=== PATIENT | male | born 1945 | race Caucasian/White ===

== ENCOUNTER 2016-10-04 19:26 | Inpatient (IN) | payer MEDICARE, OTHER ==
--- NOTE | ~2016-10-04 | A ---
[facility] Nutrition Therapy DATE: 10/06/16 Patient: JALEN HERNANDEZ Physician: DEYANIRA Address: [facility] Room/Bed: [address] [place] [address], Zip: [place] [address] Admit Date: 10/05/16 Date of : 45 Height: 5 10 Weight: 227 103 NUTRITIONAL ASSESSMENT: REASON: NUTRITION RISK POINT- HOME TUBE FEEDS PATIENT ADMITTED FOR KIMBERLY, POSSIBLE PNA, ABDOMINAL DISTENTION PMH: CAD, CVA, GERD, IMMOBILITY SYNDROME, APHAGIA, HTN Anthropometrics: HT: 70", WT: 130KG, BMI: 32.6 Labs: 10/06/16- BUN: 42, ALL OTHER NUTRITION LABS WNL Meds: VANCOMYCIN, MIRALAX, NACL, ZOSYN, MILK OF MAG I/O & Bowel function: 5310/2302 LBM 10/06/16 Skin Integrity: INTACT Estimated Nutrition Needs: KCAL: 3615-3440 (20-25KCAL/KG) PRO: 83-103 (0.8-1.0GM/KG) WATER: 9240-3575 (1ML/KCAL) Assessment: PATIENT IS A 70 Y/O MALE ADMITTED FOR KIMBERLY, POSSIBLE PNA, AND ABDOMINAL DISTENTION. HE IS A RESIDENT OF [facility] AND HAS A PERMINENT PEG TUBE PLACED. PATIENT IS MOSTLY NON-VERBAL, MAY ANSWER YES/NO QUESTIONS, AND DOES NOT REALLY FOLLOW COMMANDS. HE HAS R-SIDE HEMIPARESIS AND IMMOBILITY SYNDROME. PATIENT WAS SLEEPING DRUING VISIT AND THERE WAS NO FAMILY AT BEDSIDE. PATIENT HAS TRACE EDEMA TO RLE, WHICH MAY CAUSE WEIGHT FLUCUTATIONS, AND NO SKIN BREAKDOWN NOTED ATT. PATIENT IS ON A NPO DIET AND RECEIVES JEVITY 1.5 @ 70CC/HR X 22 HRS, WHICH IS HIS HOME FORMULA AND RATE. THERE HAVE BEEN NO SIGNIFICANT WEIGHT CHANGES PER iconDial X LAST 6 MONTHS. Dx: ALTERED NUTRIENT NEEDS R/T CURRENT CONDITION, NPO STATUS AEB NEED FOR ENTERAL NUTRITION Intervention: NPO DIET, ENTERAL NUTRITION VIA PEG TUBE, MEDS/FLUIDS PER MD Monitoring, Evaluation and Goals: 1. PREVENT, CORRECT MICRO/MACRO NUTRIENT DEFICIENCIES 2. WEIGHT; MAINTAIN CURRENT WEIGHT 3. PROVIDE 100% ESTIMATED NUTRIENT NEEDS [facility] Nutrition Therapy DATE: 10/06/16 Patient: JALEN HERNANDEZ Physician: DEYANIRA Address: [facility] Room/Bed: [address] [place] [address], Zip: [place] [address] Admit Date: 10/05/16 Date of : [birth year] Height: 5 10 Weight: 227 103 MONTIOR: WEIGHTS, LABS, ELECTROLYTES, I/O'S Recommendations: 1. CONTINUE CURRENT ENTERAL NUTRITION ORDER OF JEVITY 1.5 @ 70ML/HR X 22 HRS TOLERATED, AND FREE WATER FLUSHES OF 250CC Q 6 HOURS. THIS FORMULA PROVIDES 2310 KCALS, 98GM PROTEIN, AND 1170ML FLUIDS. 2. CONSULT RD WITH ANY FURTHER NUTRITION QUESTIONS OR CONCERNS RD TO F/U PER PROTOCOL AND PRN R/T PATIENT MILDLY COMPROMISED Respectfully, AUGIE PEREZ, RD, LD Food and Nutritional Services [facility] cc: client file
--- NOTE | ~2016-10-04 | CR72 ---
[facility] A Service of [facility] RADIOLOGY TEXT RESULTS PATIENT: JALEN HERNANDEZ LOCATION: [facility] : 45 UNIT #: [id number] AGE: [address]: Benjamin Banks MD SEX: M ORDER DR: [id number] [facility] [address] [facility]. [place], [place] [address] [id number] I MR#: [id number] Acc #: [id number] NAME: JALEN HERNANDEZ : 1945 SEX: M STUDY DATE/TIME: 10/08/2016 5:23 UNIT: [facility] ROOM: [facility] STUDY DESCRIPTION: CR Chest Single View Portable Attending Physician: Benjamin Banks M.D. Ordering Physician: Benjamin Banks M.D. Primary Care Physician: Primary Care Physician No MEDICAL IMAGING REPORT This report is preliminary unless electronic signature is present EXAM AP portable chest 10/08/2016 05:23 HISTORY Cough, abdominal distension and fever. Symptoms began 10/05/2016. COMPARISON AP portable chest 10/05/2016 at 05:18. FINDINGS Low volume inspiration. Mild linear scarring in the lung bases unchanged from prior exams. No acute airspace disease is seen. Benign calcified granuloma in the right lower lobe. IMPRESSION 1. No acute chest findings. Chronic linear bibasilar atelectasis or scarring which appears similar to a more remote study from 04/08/2016. 2. Benign calcified granulomatous changes. 3. CABG changes. Dictated by... Reshma Bond M.D. THIS IS AN ELECTRONICALLY VERIFIED REPORT Reshma Bond M.D. at 10/09/2016 9:59 PM [facility]/clark TD: 10/08/2016 08:56 JOB #: [id number] MEDICAL IMAGING REPORT [facility] A Service [facility] RADIOLOGY TEXT RESULTS PATIENT: JALEN HERNANDEZ LOCATION: [facility] : 45 UNIT #: [id number] AGE: [address]: Benjamin Banks MD SEX: M ORDER DR: Page 1 of 1 COPY
--- NOTE | ~2016-10-04 | CR72 ---
[facility] A Service of [facility] & [facility] RADIOLOGY TEXT RESULTS PATIENT: JALEN HERNANDEZ LOCATION: C2A : 45 UNIT #: [id number] AGE: [address]: Benjamin Banks MD SEX: M ORDER DR: [id number] [facility] [address] [facility]. [place], [place] [address] [id number] I MR#: [id number] Acc #: [id number] NAME: JALEN HERNANDEZ : 1945 SEX: M STUDY DATE/TIME: 10/11/2016 5:52 UNIT: [facility] ROOM: [facility] STUDY DESCRIPTION: CR Chest Single View Portable Attending Physician: Benjamin Banks M.D. Ordering Physician: Jagjit Rogers M.D. Primary Care Physician: No Primary Care Physician MEDICAL IMAGING REPORT This report is preliminary unless electronic signature is present EXAM Portable chest HISTORY Cough, pneumonia, fever. COMPARISON 10/08/2016 FINDINGS AP portable view of the chest demonstrates continued low lung volumes with bibasilar atelectasis. Diffuse coarse parenchymal markings suggest background fibrosis. Probable granuloma right midlung. Stable cardiomediastinal silhouette in this patient post median sternotomy and apparent CABG. No sizeable effusions. No pneumothorax. Dictated by... Sierra Evangelista M.D. THIS IS AN ELECTRONICALLY VERIFIED REPORT Sierra Evangelista M.D. at 10/11/2016 5:29 PM HARINDER/ken TD: 10/11/2016 09:31 JOB #: [id number] MEDICAL IMAGING REPORT Page 1 of 1 COPY
--- NOTE | ~2016-10-04 | EKG ---
PATIENT: JALEN HERNANDEZ UNIT #: [id number] Ventricular Rate: 96 BPM Atrial Rate: 96 BPM P-R Interval: 162 ms QRS Duration: 86 ms Q-T Interval: 350 ms QTC Calculation(Bezet): 442 ms P [place]: 52 degrees Calculated R [place]: -8 degrees Calculated T [place]: 54 degrees Diagnosis Line: Sinus rhythm with Fusion complexes Diagnosis Line: Otherwise normal ECG Diagnosis Line: No previous ECGs available Diagnosis Line: Confirmed by UBALDO ROSA MD ([id number]) on Diagnosis Line: 10/05/2016 11:18:29 PM INTERPRETING MD: TIFFANY
--- NOTE | ~2016-10-04 | CR2 ---
[facility] A Service of [facility] RADIOLOGY TEXT RESULTS PATIENT: JALEN HERNANDEZ LOCATION: [facility] 205-01 : [birth year] UNIT #: [id number] AGE: [address]: Benjamin Banks MD SEX: M ORDER DR: [id number] [facility] [address] [facility]. [place], [place] [address] [id number] P MR#: [id number] Acc #: [id number] NAME: JALEN HERNANDEZ : 1945 SEX: M STUDY DATE/TIME: 10/04/2016 18:44 UNIT: [facility] ROOM: STUDY DESCRIPTION: CR Abdomen Acute Series Attending Physician: Emma Wong M.D. Ordering Physician: Emma Wong M.D. Primary Care Physician: No Primary Care Physician MEDICAL IMAGING REPORT This report is preliminary unless electronic signature is present EXAM Acute abdominal series. DATE OF EXAM 10/04/2016 HISTORY Abdomen pain started today. FINDINGS AP radiograph of the chest is presented with supine and upright radiographs of the abdomen and pelvis. Status post median sternotomy and CABG. Mild cardiac enlargement. Lung volumes low. Linear atelectasis or scarring bilateral lung bases. Central bronchovascular crowding. There is no compelling evidence of acute infectious or inflammatory disease in the lungs. No definite pleural effusion or pneumothorax and no suspicious nodule. Calcified granuloma in the right lower lung zone. Bony structures of the abdomen and pelvis show degenerative change in the lumbar spine and bilateral hips with mild dextroscoliosis of the lumbar spine. The bowel gas pattern is abnormal. There are mildly dilated air-filled loops of small bowel seen throughout the abdomen. Air and stool seen throughout the colon with a large volume of stool seen throughout the colon particularly in the rectum. The bowel gas pattern could be a reflection of some degree of fecal impaction, constipation, and associated mild generalized ileus. There is no free air. Dictated by... Librado Pineda M.D. THIS IS AN ELECTRONICALLY VERIFIED REPORT [facility] A Service of [facility] RADIOLOGY TEXT RESULTS PATIENT: JALEN HERNANDEZ LOCATION: [facility] 205-01 : [birth year] UNIT #: [id number] AGE: [address]: Benjamin Banks MD SEX: M ORDER DR: Librado Pineda M.D. at 10/09/2016 10:29 AM ZAN/chintan TD: 10/04/2016 19:21 JOB #: [id number] MEDICAL IMAGING REPORT Page 1 of 1 COPY
--- NOTE | ~2016-10-04 | EKG ---
PATIENT: JALEN HERNANDEZ UNIT #: [id number] Ventricular Rate: 81 BPM Atrial Rate: 81 BPM P-R Interval: 164 ms QRS Duration: 82 ms Q-T Interval: 388 ms QTC Calculation(Bezet): 450 ms P [place]: 51 degrees Calculated R [place]: -19 degrees Calculated T [place]: 42 degrees Diagnosis Line: Normal sinus rhythm Diagnosis Line: Nonspecific T wave abnormality Diagnosis Line: Abnormal ECG Diagnosis Line: When compared with ECG of 08-APR-2016 20:05, Diagnosis Line: No significant change was found Diagnosis Line: Confirmed by UBALDO ROSA MD ([id number]) on Diagnosis Line: 10/05/2016 11:11:47 PM INTERPRETING MD: TIFFANY
--- NOTE | ~2016-10-04 | DS ---
Unit #: [id number] #: [id number] Patient: JALEN HERNANDEZ [id number] [facility]. [place], [place] [address] [id number] I MR#: [id number] NAME: JALEN HERNANDEZ ROOM: 205 Age: 70 Sex: M Admission Date: 10/05/2016 : 1945 Discharge Date: 10/11/2016 Attending Physician: Benjamin Banks M.D. Primary Care Physician: Lynda Primary Care Physician DISCHARGE SUMMARY REPAIR CAMERAMAN Dr. Rogers ADMITTING DIAGNOSES 1. Acute kidney injury. 2. Abdominal distention. 3. Cough. DISCHARGE DIAGNOSES 1. Acute kidney injury. 2. Abdominal distention. 3. Cough. 4. Possible healthcare-associated pneumonia. HISTORY OF PRESENTING ILLNESS The patient is a 70-year-old man who is a jail resident with a past medical history of stroke, chronic immobilization, status post PEG tube placement, history of hypertension, who was admitted for cough on the 05 of October. In the initial evaluation, he was noted to have a creatinine hike to 1.8. He was also noted to have abdominal distention and he had low grade fevers up to 100.4. Blood cultures were obtained. Cultures were all negative. He was initially started on broad spectrum antimicrobials which were de-escalated to Zofran for possible aspiration pneumonia. He had ileus/constipation. After getting laxatives, his bowel movement improved. In the hospital course, for shortness of breath, he did have a 2D echo with Doppler which was an extremely technically difficult study. He was noted to have an EF of 50% to 55%. Small pericardial effusion versus fat tissue. He was gently diuresed. He was started on antimicrobials. Dr. Rogers helped us with the management of shortness of breath. He is doing clinically better. He is now requiring only 1L of oxygen. He is more alert and he is trying to talk today. His tube feeds were kept on hold for abdominal distention and we restarted the tube feeds. He is doing clinically better. He did have a CT of the chest which was showing emphysematous changes with bullae mainly in the apical region and also possible calcified pleural plaques in the basis. I spoke with patient's daughter, Nora Auguste, on the phone and discussed with her about the clinical situation and explained to her that her father will be [facility] the jail today. She is agreeable for that. On the day of the discharge, his physical examination: VITAL SIGNS - temperature 98.4, pulse rate 97, respirations 18, blood pressure 133/58. The patient is alert, not able to evaluate his orientation. He answers Unit #: [id number] #: [id number] Patient: JALEN HERNANDEZ questions which do not make sense. HEENT - normocephalic, atraumatic. CHEST - bilateral equal air entry, clear to auscultation. HEART - S1, S2. Regular rate and rhythm. ABDOMEN soft, nontender. Bowel sounds present. EXTREMITIES - trace edema. DISCHARGE MEDICATIONS His discharge medications include: 1. Albuterol two puffs q.4 p.r.n. for shortness of breath. 2. Tylenol p.r.n. 3. Lovenox 40 mg subcu daily for DVT prophylaxis, mainly because of his chronic immobilization. 4. Norvasc 10 mg daily. 5. Metoprolol 100 mg twice a day. 6. Colace 100 mg p.o. twice a day. 7. Milk of magnesia 30 mL p.r.n. 8. MiraLAX 17 g p.o. daily. 9. Robitussin 30 mL twice a day. 10. Pravachol 80 mg at bedtime. 11. Aspirin 325 mg daily. 12. Plavix 75 mg daily. 13. Codeine/Tylenol p.r.n. 14. Kindly note - Imdur 10 mg three times a day. 15. Nitroglycerin 0.4 mg p.r.n. for chest pain. 16. Kindly note - I am keeping his lisinopril on hold. It was kept on hold since admission for the acute kidney injury. Will also request to repeat the BMP in the morning. 17. Will give him oral KCl 10 mEq p.o. daily for three days. Total time spent in his care - 35 minutes. Dictated by... Benjamin Banks M.D. Glenis TD: 10/11/2016 12:17 JOB #: [id number] DISCHARGE SUMMARY Page 1 of 1 X X DISCHARGE SUMMARY
--- NOTE | ~2016-10-04 | CR7 ---
[facility] A Service of [facility] & [facility] RADIOLOGY TEXT RESULTS PATIENT: JALEN HERNANDEZ LOCATION: C2A : 45 UNIT #: [id number] AGE: [address]: Benjamin Banks MD SEX: M ORDER DR: [id number] [facility] [address] [facility]. [place], [place] [address] [id number] I MR#: [id number] Acc #: [id number] NAME: JALEN HERNANDEZ : 1945 SEX: M STUDY DATE/TIME: 10/08/2016 19:21 UNIT: C2A ROOM: 205 STUDY DESCRIPTION: CR Abdomen Single AP View Attending Physician: Benjamin Banks M.D. Ordering Physician: Fransisco Pulido M.D. MEDICAL IMAGING REPORT This report is preliminary unless electronic signature is present EXAM Single-view abdomen HISTORY Abdominal pain, possible pneumonia. Acute kidney injury. FINDINGS Single AP view of the abdomen demonstrates G-tube overlying the left upper quadrant with the balloon inflated and a small amount of gas noted within the distal stomach. Based on this view, the G-tube appears in proper position. Normal non-obstructive bowel gas pattern. Bibasilar atelectasis. No organomegaly. Osseous structures unremarkable. There is a monitoring probe overlying the rectal region, probably related to Mitchell catheter and temperature probe. Dictated by... Sierra Evangelista M.D. THIS IS AN ELECTRONICALLY VERIFIED REPORT Sierra Evangelista M.D. at 10/09/2016 8:24 AM HARINDER/aimee TD: 10/08/2016 21:53 JOB #: [id number] MEDICAL IMAGING REPORT Page 1 of 1 COPY
--- NOTE | ~2016-10-04 | CT57 ---
[facility] A Service of [facility] & [facility] RADIOLOGY TEXT RESULTS PATIENT: JALEN HERNANDEZ LOCATION: C2A : 45 UNIT #: [id number] AGE: [address]: Benjamin Banks MD SEX: M ORDER DR: [id number] [facility] [address] [place], [place] [address] [id number] I MR#: [id number] Acc #: [id number] NAME: JALEN HERNANDEZ : 1945 SEX: M STUDY DATE/TIME: 10/08/2016 21:01 UNIT: C2A ROOM: 205 STUDY DESCRIPTION: CT Chest Wo Cont Attending Physician: Benjamin Banks M.D. Ordering Physician: Fransisco Pulido M.D. MEDICAL IMAGING REPORT This report is preliminary unless electronic signature is present EXAM CT chest without contrast 10/08/2016 HISTORY 70-year-old male with physician stated history of pneumonia. Paralysis. Nonverbal. Acute renal insufficiency. Previous history of stroke. Additional history of shortness of breath, cough for 3-4 days. COMPARISON AP portable chest 10/08/2016 at 05:23. [address] prior CT chest at this institution for comparison. TECHNIQUE 5 mm axial images performed through the chest without IV contrast. Sagittal and coronal reformatted images were obtained. This CT exam was performed with one or more of the following radiation dose reduction techniques: automatic exposure control, adjustment of mA and/or kV according to patient size, and iterative reconstruction. FINDINGS Study is significantly degraded by patient respiratory motion. Emphysematous changes are present bilaterally with bullous foci in the upper lobes. Linear or band-like scarring is present within the bilateral lower lobe and right middle lobes. There may be some posterior bibasilar atelectasis, as well. Calcified pleural plaques are present bilaterally. Benign calcified granuloma is present in the inferior right upper lobe just above the minor fissure. No definite pericardial effusion or pleural effusion. Median sternotomy changes are present with rhug-py-[id number] calcific atherosclerosis in the thoracic aorta. The descending thoracic aorta is borderline aneurysmal at 3 cm. Percutaneous gastrostomy tube is in place. Remainder of included upper abdominal organs appear normal. [facility] A Service of [facility] & [facility] RADIOLOGY TEXT RESULTS PATIENT: JALEN HERNANDEZ LOCATION: A 205-01 : [birth year] UNIT #: [id number] AGE: [address]: Benjamin Banks MD SEX: M ORDER DR: No acute osseous abnormalities are identified. IMPRESSION 1. Posterior bibasilar atelectasis with linear or band-like scarring within the bilateral lower lobes and right middle lobe and to a lesser degree in the lingula. 2. Moderate emphysema, with bullous changes in the apices. 3. Study is degraded by patient respiratory motion. 4. Mild cardiomegaly with median sternotomy. 5. 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 6. Calcified pleural plaques bilaterally. Correlate clinically for history of asbestos exposure. 7. Percutaneous gastrostomy tube is in place. Dictated by... Reshma Bond M.D. THIS IS AN ELECTRONICALLY VERIFIED REPORT Reshma Bond M.D. at 10/09/2016 9:59 PM NUNO/aimee TD: 10/08/2016 22:49 JOB #: [id number] MEDICAL IMAGING REPORT Page 1 of 1 COPY
--- NOTE | ~2016-10-04 | HP ---
Unit #: [id number] #: [id number] Patient: JALEN HERNANDEZ [id number] [address] [place], [place] [address] [id number] I MR#: [id number] NAME: JALEN HERNANDEZ ROOM: [address]40 Age: 70 Sex: M Admission Date: 10/05/2016 : 1945 Attending Physician: Misty Maria M.D. Primary Care Physician: No Primary Care Physician HISTORY AND PHYSICAL REVISED REPORT CHIEF COMPLAINT Acute kidney injury, abdominal distention, and cough. HISTORY This 70-year-old male with previous CVA who now is at a retirement immobilized with PEG tube, history of hypertension, and CAD is admitted for cough. Patient was sent from [facility] for abdominal distension; I am unsure. When he arrived here, he was covered in urine and had significant rhonchi and cough. Chest x-ray is read is negative, but the patient does have an elevated white blood count and lactic acid level. On examination, he was coughing. He does have good bowel sounds and a distended, but nontender abdomen. An acute abdominal series was read as ileus versus large volume of stool. Given the elevated lactic acid level, the patient was given Zosyn, vancomycin, and tobramycin pending further workup. His temperature was as high as 100.4. He is almost nonverbal on exam and really does not follow commands. Told me no when I asked if he was having pain. PAST MEDICAL HISTORY 1. CAD, status post CABG. Details are unknown. 2. Hypertension. 3. 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 Patient has a PEG tube in place. 4. Peripheral vascular disease. ALLERGIES To iodine and OxyContin. ASSISTED MEDICATIONS 1. Norvasc 10 mg daily. 2. Aspirin 325 mg daily. 3. Plavix 75 mg daily. 4. Prinivil 20 mg daily. 5. Isordil 10 mg t.i.d. 6. Robitussin b.i.d. 7. Tylenol #3 b.i.d. 8. Pravachol 80 mg q.h.s. 9. Nitroglycerin p.r.n. chest pain. 10. ProAir as needed. 11. DuoNeb as needed. Unit #: [id number] #: [id number] Patient: JALNE HERNANDEZ 12. Flexeril 10 mg t.i.d. as needed. 13. Tylenol #3 q.4 hours as needed. 14. P.R.N. Tylenol. 15. MOM. 16. Metoprolol 100 mg b.i.d. FAMILY HISTORY Unobtainable. SOCIAL HISTORY The patient lives at [facility]. He is a full code. Currently does not smoke or drink alcohol. REVIEW OF SYSTEMS Impossible to obtain. Patient does have expressive aphasia. PHYSICAL EXAMINATION GENERAL APPEARANCE: 70-year-old male with expressive aphasia currently in no acute distress. VITAL SIGNS: Temperature was as high as 100.4, pulse 83, respirations 26, current blood pressure is 113/65, and O2 saturation is 92% on oxygen. It was 91% on room air. HEENT: Eyes: PERRLA. Pharynx: Patient refused to open his mouth. NECK: Supple without adenopathy or thyromegaly. CHEST: Reveals rhonchi bilaterally. CARDIAC: Normal S1 and S2 without definite murmur. ABDOMEN: Bowels sounds are present. There is a PEG in the upper abdomen. Nontender. No definite hepatosplenomegaly or masses, although it is distended. EXTREMITIES: Without C, C, or E. Pedal pulses are diminished. NEUROLOGIC: Patient has an expressive aphasia. He follows some commands, but not others. He has right hemiparesis. DIAGNOSTIC STUDIES LABORATORY: Admission labs: Hematocrit is 48, white blood count is 15.9, and normal platelet count. There are 10 bands noted. SMA-12: Glucose 132, BUN 60, creatinine 1.6 (up from a BUN of 35 and creatinine of 1.3, 03/2016). Normal lipase. Lactic acid is 3.1. Urinalysis: Without significant white or red cells. IMAGING: Acute abdominal series shows increased gas in the bowel loops and large volume of stool. May represent constipation versus ileus. The chest x-ray portion shows bibasilar atelectasis versus scarring. ASSESSMENT 1. Cough, rule out aspiration pneumonia, rule out sepsis. 2. Acute kidney injury. 3. Abdominal distention, but abdomen really is not particularly tender and patient has good bowel sounds. Acute abdominal series consistent with ileus versus constipation. 4. CAD, status post CABG. Details are unknown. 5. Prior left hemispheric CVA. Patient is immobilized with right hemiparesis, expressive aphasia, and dysphagia with PEG tube in place. 6. Essential hypertension. 7. GERD. PLANS 1. Aggressive IV fluids. Unit #: [id number] #: [id number] Patient: JALEN HERNANDEZ 2. Vancomycin, Zosyn, and 1 dose of tobramycin pending repeat chest x-ray in the morning. Will hold tube feeds for now, as well. Change to routine DuoNeb. 3. Recheck lactic acid and repeat labs in the morning. 4. DVT prophylaxis. 5. Obtain echo, EKG, and cardiac enzymes. 6. Laxatives and enemas. 7. Patient is a full code. 8. Long-term prognosis is guarded. Dictated by Sin Suresh/matti TD: 10/05/2016 05:30 JOB #: [id number] HISTORY AND PHYSICAL Page 1 of 1 X Misty Maria MD X HISTORY AND PHYSICAL
--- NOTE | ~2016-10-04 | CO ---
Unit #: [id number] #: [id number] Patient: JALEN HERNANDEZ [id number] [address] [place], [place] [address] [id number] MR#: [id number] NAME: JALEN HERNANDEZ ROOM: 205 Age: 70 Sex: M Admission Date: 10/05/2016 : 1945 Attending Physician: Benjamin Banks M.D. Primary Care Physician: Lynda Primary Care Physician Consultation Date: 10/09/2016 CONSULTATION REPORT HISTORY OF PRESENT ILLNESS This is a pleasant 70-year-old gentleman with a history of CVA, right-sided hemiparesis, status post PEG, with immobility syndrome. He lives at [facility]. He has been admitted for ileus as well as acute renal insufficiency. The patient now is having rhonchi and cough, suspected aspiration, elevated white count, elevated lactic acid. The abdominal series initially showed ileus. The patient was placed on HCAP antibiotics with Zosyn, vancomycin and tobramycin. He did have a fever. The kidney function improved, however, he developed progressive hypoxia. The patient is currently on 1.5 liters of oxygen. I was asked to see regarding hypoxia. PAST MEDICAL HISTORY 1. Coronary artery disease status post coronary artery bypass grafting. 2. Hypotension. 3. Left hemispheric CVA. 4. Right hemiparesis. 5. Peripheral vascular disease. SOCIAL HISTORY The patient lives at [facility]. Full code. No current alcohol or tobacco. FAMILY HISTORY Unobtainable. ALLERGIES Iodine, OxyContin. HOME MEDICATIONS 1. Norvasc 10 mg daily. 2. Aspirin 325 mg daily. 3. Plavix 75 mg daily. 4. Prinivil 20 mg daily. 5. Isordil 10 mg t.i.d. 6. Robitussin b.i.d. 7. Tylenol 3 b.i.d. 8. Pravachol 80 mg at nighttime. 9. Nitroglycerin p.r.n. chest pain. 10. ProAir as needed. 11. Duo-Neb as needed. 12. Flexeril 10 mg t.i.d. as needed. 13. Tylenol q.4 h. p.r.n. 14. Metoprolol b.i.d. Unit #: [id number] #: [id number] Patient: JALEN HERNANDEZ REVIEW OF SYSTEMS Impossible to be obtained as the patient is nonverbal. PHYSICAL EXAMINATION VITALS: T-current 99.9, respiratory rate 18, heart rate 100, blood pressure 135/70. HEENT: Extraocular movements are intact. Pupils equal, round and reactive to light. CHEST: Decreased breath sounds bilaterally. HEART: Regular rate. No gallop. ABDOMEN: Soft, nontender and nondistended. EXTREMITIES: No evidence of edema. DIAGNOSTIC STUDIES IMAGING: CT of the abdomen shows pleural plaque, nodules, kind of diffuse infiltrate. No clear area of pneumonia. LABORATORY: BUN 15, creatinine 0.9. CARDIOVASCULAR: Echocardiogram shows echo, small pericardial effusion. Left ventricular systolic function with ejection fraction of 50%-55%. Technically limited. ASSESSMENT/PLAN Hypoxia: The patient is unable to get a PFT. Will not be able to cooperate with. Therefore, we have two main reasons for hypoxia. One, probably aspiration during the time that the patient had the ileus. Aspiration could have occurred, even if it is not impressive on the CAT scan and it can cause hypoxia by causing bronchospasm. Secondly, we could have a worsening of congestive heart failure. Will, therefore, check fluid, BMP. Chest x-ray or CT do not show any worsening infiltrate. The patient is tolerating food okay per PEG tube and renal sufficiency has improved. If it appears that the patient is getting more fluid overloaded, we will see about increasing diuretics. Otherwise I would continue the multi-coverage antibiotics for approximately five days. Dictated by... Sin Altamirano TD: 10/09/2016 16:00 JOB #: [id number] CONSULTATION REPORT Page 1 of 1 X Franki [place] MD CONSULTATION REPORT
--- NOTE | ~2016-10-04 | CR72 ---
[facility] A Service of [facility] & [facility] RADIOLOGY TEXT RESULTS PATIENT: JALEN HERNANDEZ LOCATION: [place] [address] : [birth year] UNIT #: [id number] AGE: [address]: Benjamin Banks MD SEX: M ORDER DR: [id number] [facility] [address] [place], [place] [address] [id number] I MR#: [id number] Acc #: [id number] NAME: JALEN HERNANDEZ : 1945 SEX: M STUDY DATE/TIME: 10/05/2016 5:18 UNIT: CEDOF ROOM: [id number] STUDY DESCRIPTION: CR Chest Single View Portable Attending Physician: Misty Maria M.D. Ordering Physician: Misty Maria M.D. Primary Care Physician: Primary Care Physician No MEDICAL IMAGING REPORT This report is preliminary unless electronic signature is present EXAM Chest x-ray 10/05/2016 HISTORY 70-year-old male admitted through the ED yesterday with abdominal pain. Now with shortness of air. FINDINGS Chronic-appearing bibasilar scarring and/or atelectasis is unchanged since 04/08/2016. Lung volumes are chronically low. Postop changes CABG. Heart size and pulmonary vascularity are normal. No visible airspace consolidation or pleural effusion. IMPRESSION 1. No definite active disease. No change since 04/08/2016. 2. CABG. 3. Chronically low lung volumes with scarring or atelectasis in the lung bases. Dictated by... Akin Babin M.D. THIS IS AN ELECTRONICALLY VERIFIED REPORT Akin Babin M.D. at 10/10/2016 9:15 AM TEODORO/clark TD: 10/05/2016 06:38 JOB #: [id number] MEDICAL IMAGING REPORT Page 1 of 1 COPY
[2016-10-04 18:59] LABS: BASOPHIL% 0.1 % (0-2.5); EOSINOPHIL% 0.2 % (0.0-7.0); HEMOGLOBIN 15.7 gm/dL (13.0-16.0); LYMPHOCYTE% 6.4 % (17.0-45.0); MEAN CORPUSCULAR HEMOGLOBIN 30.1 PG (28-34); MEAN CORPUSCULAR HGB CONC 32.7 g/dL (30-36); MEAN PLATELET VOLUME 11.9 FL (6.5-11.5); MONOCYTE# 0.7 X10e3 (0-1.0); MONOCYTE% 4.6 % (3.0-12.0); NEUTROPHIL# 14.1 X10e3 (1.5-7.1); NEUTROPHIL% 88.7 % (40-75); PLATELET COUNT 217 X10e3 (140-420); RED BLOOD COUNT 5.23 X10e (3.90-5.60); RED CELL DISTRIBUTION WIDTH 15.1 % (11.0-15.5); WHITE BLOOD COUNT 15.9 X10e3 (4.0-10.5)
[2016-10-04 19:07] LABS: ALBUMIN SERUM 3.8 g/dL (3.5-5.0); BILIRUBIN, DIRECT 0.1 mg/dL (0.0-0.2); BILIRUBIN,INDIRECT 0.4 mg/dL (0.0-0.9); BILIRUBIN,TOTAL 0.5 mg/dL (0.2-2.0); BUN/CREATININE RATIO 33.33; CALCIUM SERUM 9.2 mg/dL (8.4-10.2); CREATININE SERUM 1.8 mg/dL (0.6-1.4); DIFF IND YES; GLOM FILT RATE Estimated 37.3 mL/min (>60); POTASSIUM 4.3 mmol/L (3.5-5.1); PROTEIN TOTAL SERUM 7.8 g/dL (6.0-8.3)
[~2016-10-04 19:26] MED LIST: ASPIRIN ENTERI325 M1 PO; BAYER ASPIRIN325 M1 GT; CLOPIDOGREL BIS75 MG PO; CLOPIDOGREL75 MG GT; FLEXERIL10 MG GT; GERI-TUSSI100 MG/5 M GT; IPRATR-ALBUTEROL3 ML INH; ISOSORBIDE MONO10 MG GT; ISOSORBIDE MONO10 MG PO; LISINOPRIL20 MG PO; MAPAP500 M1 GT; METOPROLOL TAR100 MG PO; MILK OF MAGNESIA GT; NITROSTAT0.4 MG SL; NORVASC10 MG GT; NORVASC10 MG PO; PRAVACHOL80 MG GT; PRAVACHOL80 MG PO; PRINIVIL20 M1 GT; PROAIR HFA8.5 GM INH; TYLENOL #3 GT
[2016-10-04 19:36] LABS: PLATELET ESTIMATE NORMAL (NORMAL)
[2016-10-04 19:37] LABS: RBC NORMAL YES
[2016-10-04 23:51] LABS: URINE SOURCE CLEAN CATCH
[2016-10-04 23:54] LABS: URINE APPEARANCE CLEAR; URINE BILIRUBIN NEG (NEG); URINE BLOOD NEG (NEG); URINE COLOR YELLOW; URINE GLUCOSE NEG (NEG); URINE KETONE NEG (NEG); URINE LEUKOCYTE ESTERASE NEG (NEG); URINE NITRATE NEG (NEG); URINE PROTEIN NEG (NEG); URINE SPECIFIC GRAVITY 1.024 (1.003-1.035)
[2016-10-04 23:56] LABS: CULTURE INDICATED? NO
[2016-10-05 05:30] LABS: BASOPHIL% 0.3 % (0-2.5); EOSINOPHIL% 0.2 % (0.0-7.0); HEMATOCRIT 48.6 % (38.0-50.0); HEMOGLOBIN 15.5 gm/dL (13.0-16.0); LYMPHOCYTE# 0.7 X10e3 (1.0-3.5); LYMPHOCYTE% 9.1 % (17.0-45.0); MEAN CELL VOLUME 93.6 FL (83-96); MEAN CORPUSCULAR HEMOGLOBIN 29.8 PG (28-34); MEAN CORPUSCULAR HGB CONC 31.9 g/dL (30-36); MEAN PLATELET VOLUME 11.3 FL (6.5-11.5); MONOCYTE# 0.1 X10e3 (0-1.0); MONOCYTE% 0.9 % (3.0-12.0); NEUTROPHIL# 6.7 X10e3 (1.5-7.1); NEUTROPHIL% 89.5 % (40-75); PLATELET COUNT 175 X10e3 (140-420); RED CELL DISTRIBUTION WIDTH 15.4 % (11.0-15.5)
[2016-10-05 05:31] LABS: DIFF IND NO; WHITE BLOOD COUNT 7.5 X10e3 (4.0-10.5)
[2016-10-05 06:14] LABS: BUN/CREATININE RATIO 32.94; CALCIUM SERUM 8.6 mg/dL (8.4-10.2); CREATININE SERUM 1.7 mg/dL (0.6-1.4); POTASSIUM 3.9 mmol/L (3.5-5.1)
[2016-10-05 06:33] LABS: %MB 2.4 % (0.0-4.0); MB 3.5 ng/ml
[2016-10-05] MEDS ORDERED: METOPROLOL TAR100 MG PEG (10:21)
[2016-10-05] MEDS ORDERED: PRAVACHOL80 MG PEG (10:23)
[2016-10-06 05:05] LABS: HEMATOCRIT 44.9 % (38.0-50.0); HEMOGLOBIN 14.6 gm/dL (13.0-16.0); MEAN CELL VOLUME 92.7 FL (83-96); MEAN CORPUSCULAR HEMOGLOBIN 30.1 PG (28-34); MEAN CORPUSCULAR HGB CONC 32.5 g/dL (30-36); MEAN PLATELET VOLUME 11.4 FL (6.5-11.5); RED BLOOD COUNT 4.84 X10e (3.90-5.60); WHITE BLOOD COUNT 9.3 X10e3 (4.0-10.5)
[2016-10-06 06:14] LABS: CALCIUM SERUM 8.5 mg/dL (8.4-10.2); CREATININE SERUM 1.2 mg/dL (0.6-1.4); GLOM FILT RATE Estimated 60.9 mL/min (>60); POTASSIUM 3.8 mmol/L (3.5-5.1)
[2016-10-07 07:45] LABS: BUN/CREATININE RATIO 23.33; CALCIUM SERUM 8.6 mg/dL (8.4-10.2); CREATININE SERUM 0.9 mg/dL (0.6-1.4); GLOM FILT RATE Estimated 86.2 mL/min (>60); POTASSIUM 3.5 mmol/L (3.5-5.1)
[2016-10-08 03:24] LABS: HEMATOCRIT 47.1 % (38.0-50.0); HEMOGLOBIN 15.4 gm/dL (13.0-16.0); MEAN CELL VOLUME 91.9 FL (83-96); MEAN CORPUSCULAR HEMOGLOBIN 30.1 PG (28-34); MEAN CORPUSCULAR HGB CONC 32.7 g/dL (30-36); MEAN PLATELET VOLUME 11.4 FL (6.5-11.5); RED BLOOD COUNT 5.12 X10e (3.90-5.60); RED CELL DISTRIBUTION WIDTH 14.9 % (11.0-15.5); WHITE BLOOD COUNT 9.2 X10e3 (4.0-10.5)
[2016-10-08 03:36] LABS: BUN/CREATININE RATIO 16.66; CALCIUM SERUM 9.2 mg/dL (8.4-10.2); CREATININE SERUM 0.9 mg/dL (0.6-1.4); GLOM FILT RATE Estimated 86.2 mL/min (>60); POTASSIUM 4.4 mmol/L (3.5-5.1)
[2016-10-10 05:28] LABS: HEMATOCRIT 48.8 % (38.0-50.0); MEAN CELL VOLUME 91.1 FL (83-96); MEAN CORPUSCULAR HEMOGLOBIN 29.8 PG (28-34); MEAN CORPUSCULAR HGB CONC 32.7 g/dL (30-36); MEAN PLATELET VOLUME 11.2 FL (6.5-11.5); RED BLOOD COUNT 5.36 X10e (3.90-5.60); RED CELL DISTRIBUTION WIDTH 14.8 % (11.0-15.5); WHITE BLOOD COUNT 11.7 X10e3 (4.0-10.5)
[2016-10-10 08:22] LABS: BUN/CREATININE RATIO 18.18; CREATININE SERUM 1.1 mg/dL (0.6-1.4); GLOM FILT RATE Estimated 67.7 mL/min (>60); POTASSIUM 3.8 mmol/L (3.5-5.1)
[2016-10-11 07:28] LABS: HEMATOCRIT 45.7 % (38.0-50.0); MEAN CELL VOLUME 91.6 FL (83-96); MEAN CORPUSCULAR HGB CONC 32.8 g/dL (30-36); MEAN PLATELET VOLUME 10.9 FL (6.5-11.5); RED BLOOD COUNT 4.99 X10e (3.90-5.60); RED CELL DISTRIBUTION WIDTH 14.8 % (11.0-15.5); WHITE BLOOD COUNT 10.4 X10e3 (4.0-10.5)
[2016-10-11 07:56] LABS: CALCIUM SERUM 8.7 mg/dL (8.4-10.2); GLOM FILT RATE Estimated 75.9 mL/min (>60)
[2016-10-11 16:48] LABS: BUN/CREATININE RATIO 17.77; CALCIUM SERUM 8.9 mg/dL (8.4-10.2); CREATININE SERUM 0.9 mg/dL (0.6-1.4); GLOM FILT RATE Estimated 86.2 mL/min (>60); POTASSIUM 3.7 mmol/L (3.5-5.1)
== END 2016-10-11 17:17 | DRG 871 ==
LOC: CED 19:26 → CEDOF 10-05 01:22 → C2A 10-05 09:26
PROVIDERS: Emergency Medicine; Internal Medicine; Internal Medicine Pulmonary Disease
DX: A41.9 Sepsis, unspecified organism (principal); J96.01 Acute respiratory failure with hypoxia; J69.0 Pneumonitis due to inhalation of food and vomit; N17.9 Acute kidney failure, unspecified; I69.354 Hemiplegia and hemiparesis following cerebral infarction affecting left non-dominant side; K56.7 Ileus, unspecified; I69.351 Hemiplegia and hemiparesis following cerebral infarction affecting right dominant side; I25.10 Atherosclerotic heart disease of native coronary artery without angina pectoris; I10 Essential (primary) hypertension; Z95.1 Presence of aortocoronary bypass graft; K21.9 Gastro-esophageal reflux disease without esophagitis; M62.3 Immobility syndrome (paraplegic); I73.9 Peripheral vascular disease, unspecified; R65.20 Severe sepsis without septic shock
CPT/HCPCS: 36415; 51702; 71010; 71250; 74000; 74022; 80048; 80076; 80202; 81003; 82150; 82308; 82550; 82553; 82947; 83605; 83690; 83735; 83880; 84484; 85025; 85027; 87040; 93005; 93306; 94640; 94760; 94761; 99285; J1650; J1940; J2543; J3260; J3370

== ENCOUNTER 2016-11-11 15:35 | Inpatient (IN) | payer MEDICARE, OTHER ==
--- NOTE | ~2016-11-11 | CT57 ---
[facility] A Service of [facility] & [facility] RADIOLOGY TEXT RESULTS PATIENT: JALEN HERNANDEZ LOCATION: [facility] 561-01 : [birth year] UNIT #: [id number] AGE: [address]: Bettye Barajas MD SEX: M ORDER DR: [id number] [facility] [address] [place], [place] [address] [id number] I MR#: [id number] Acc #: [id number] NAME: JALEN HERNANDEZ : 1945 SEX: M STUDY DATE/TIME: 11/13/2016 19:28 UNIT: [facility] ROOM: [facility] STUDY DESCRIPTION: CT Chest Wo Cont Attending Physician: Bettye Barajas M.D. Ordering Physician: Bettye Barajas M.D. Primary Care Physician: No Primary Care Physician MEDICAL IMAGING REPORT This report is preliminary unless electronic signature is present EXAM CT chest without IV contrast. COMPARISON October 08, 2016 INDICATION 71-year-old male with increasing lung opacities seen on CT of November 11 2016. Ongoing dyspnea. Clinical diagnosis of aspiration pneumonia. FINDINGS Axial CT imaging of the chest was performed without IV contrast. Lack of IV contrast limits evaluation of adenopathy and vasculature. Coronal and sagittal reformats were constructed. This CT exam was performed with one or more of the following radiation dose reduction techniques: automatic exposure control, adjustment of mA and/or kV according to patient size, and iterative reconstruction. There are bilateral calcified pleural plaques. These are seen in the lung bases, and at the level of the pulmonary apices. Diffuse osteopenia. No acute fractures or suspicious osseous lesions. Prior CABG. There is a 2.1 cm nodule in the right lobe of the thyroid gland with indeterminant internal Hounsfield units. Imaging was performed in the expiratory phase. Airways appear widely patent. There is volume loss in both lower lobes with dependent attenuation in both lower lobes most consistent with atelectasis. There is a large calcified granuloma within the right middle lobe abutting the minor fissure. There is a similar appearing rounded density seen immediately adjacent to this in the right middle lobe measuring up to 1.2 cm, likely not significantly changed from October 08, 2016. Persistent nodular density measuring 2.4 cm internal air bronchograms in the lingula, not significantly changed from October 08, 2016. There is mild nodularity along the anterior pleura in the left pulmonary apex immediately adjacent to the pleural calcification, likely post infectious STS. [facility] A Service of [facility] & [facility] RADIOLOGY TEXT RESULTS PATIENT: JALEN HERNANDEZ LOCATION: [facility] 561-01 : [birth year] UNIT #: [id number] AGE: [address]: Bettye Barajas MD SEX: M ORDER DR: or post inflammatory. There are mild to moderate emphysematous changes. No pleural effusion. Top normal heart size. Normal caliber of the thoracic aorta and pulmonary artery. There are diffuse calcifications of the thoracic aorta and the suprarenal abdominal aorta with calcifications extending into the proximal celiac and superior mesenteric arteries. No adenopathy within the chest. Calcified splenic granulomas. Percutaneous gastrostomy tube appears adequately positioned. Nonobstructive calculus of the left kidney, possibly vascular in nature. A few scattered calcifications along the course of the pancreas, perhaps reflecting remote chronic pancreatitis. No evidence of acute pancreatitis. IMPRESSION 1. No evidence of consolidative pneumonia. There is a large calcified granuloma in the right middle lobe with an adjacent nodular opacity measuring up to 1.2 cm on the sagittal reformat. Similarly in the lingula, there is a nodular opacity with internal air bronchograms which appears more plate-like on the reformats suggesting subsegmental atelectasis. In the left pulmonary apex, there are multiple subpleural nodular densities anteriorly adjacent to calcified pleural plaque. The largest of these measures up to approximately 5 mm. These are favored to be post-infectious or post-inflammatory. Consider CT chest follow up without IV contrast in 3 months to document stability of the 1.2 cm nodular density in the right middle lobe and these other nodules in the left pulmonary apex, especially in light of the patient's emphysema. 2. Diffuse calcifications of the pleura bilaterally, most consistent with remote asbestos exposure. No evidence of asbestosis. 3. 2.1 cm right thyroid nodule. Consider outpatient thyroid ultrasound for further characterization. 4. Changes of CABG with diffuse arterial calcifications in the chest and imaged upper abdomen as described in the body report. 5. Adequate position of percutaneous gastrostomy tube. 6. Punctate calculus at the left renal hilum, possibly a nonobstructive calculus versus an arterial calcification. Dictated by... Abner Vasquez M.D. THIS IS AN ELECTRONICALLY VERIFIED REPORT Abner Vasquez M.D. at 11/19/2016 7:51 AM KHRIS/chintan TD: 11/14/2016 00:54 JOB #: [id number] [facility] A Service of [facility] RADIOLOGY TEXT RESULTS PATIENT: JALEN HERNANDEZ LOCATION: [facility] 561-01 : [birth year] UNIT #: [id number] AGE: [address]: Bettye Barajas MD SEX: M ORDER DR: MEDICAL IMAGING REPORT Page 1 of 1 COPY
--- NOTE | ~2016-11-11 | CO ---
Unit #: [id number] #: [id number] Patient: JALEN HERNANDEZ [id number] [address] [place], [place] [address] [id number] I MR#: [id number] NAME: JALEN HERNANDEZ ROOM: 561 Age: 71 Sex: M Admission Date: 11/11/2016 : 1945 Attending Physician: Bettye Barajas M.D. Primary Care Physician: No Primary Care Physician Consultation Date: 11/14/2016 CONSULTATION REPORT REASON FOR CONSULT Positive blood cultures. HISTORY OF PRESENT ILLNESS This is a 71-year-old male who has a history of a prior CVA who gives limited history, but is able to respond to yes and no questions. Patient is currently a resident at [facility]. He is immobilized and he has a PEG tube in place. Patient was brought to the emergency room with abdominal pain and also had some drainage around the PEG tube site as well as questionable coffee-ground emesis and vomiting. Patient was admitted. There was concern for initial pneumonia as well. Patient had an EGD since admission and it was consistent with gastritis. He also had a G tube replacement. Patient's workup initially included blood cultures, which now showed 2 of 2 positive cultures 15 minutes apart, both showing coag negative Staphylococcus. Patient was started on vancomycin and infectious disease was asked to evaluate for further management. Patient does not appear to be in any distress. However, he cannot give me any significant history. PAST MEDICAL HISTORY Includes coronary artery disease, status post coronary artery bypass graft, hypertension, left hemispheric CVA with right hemiparesis and dysphagia with expressive aphasia, peripheral vascular disease, and PEG tube placement. ALLERGIES Iodine and OxyContin. MEDICATIONS Patient is currently on vancomycin. For further medications, please refer to patient's MAR. Patient was initially on Augmentin; however, this was recently stopped. SOCIAL HISTORY Patient lives at [facility], otherwise unknown. REVIEW OF SYSTEMS Difficult to obtain; however, patient does report no to headaches, chills, fever, and shortness of breath, but does respond yes to abdominal pain. PHYSICAL EXAMINATION VITAL SIGNS: Temperature is 98.4 with a T max. of 99.3, pulse is 79, blood pressure 137/66, and respiratory rate is 20. GENERAL: This is a no apparent distress male who does appear critically Unit #: [id number] #: [id number] Patient: JALEN HERNANDEZ lying in the bed. HEENT: His pupils are unable to be examined. NECK: Supple. CARDIOVASCULAR: S1 and S2 regular rate and rhythm. PULMONARY: Diminished in the bases with no wheezes or rhonchi noted. ABDOMEN: Rounded. Positive bowel sounds. PEG tube in place. Diffuse tenderness throughout. EXTREMITIES: no significant edema noted. He has a peripheral IV site in place. DIAGNOSTIC STUDIES LABORATORY: BUN 24, creatinine 1, sodium 141, potassium 3.3, chloride 106, CO2 27, bilirubin 1.2, AST 19, and ALT is 28. Lactic acid 1.7. Procalcitonin 0.07. White blood cell count was 13.6, which is improved from 15.2 two days ago; hemoglobin 15; hematocrit 46; and platelets 182. Urinary analysis shows 0-2 WBCs with negative bacteria and negative nitrites. Microbiology data: 11/13 blood cultures are currently pending. November 11 blood cultures, 2 of 2, 15 minutes apart for coag-negative Staphylococcus. CARDIOVASCULAR: Echocardiogram was unable to visualize the valves. IMAGING: CT scan of the chest: Please see full report for complete details. In summary, no evidence of consolidative pneumonia. There is a large calcified granuloma in the right middle lobe as well as in the lingula suggesting some atelectasis as well. There are some diffuse calcifications in the pleura bilaterally consistent with asbestos exposure. CT scan of the abdomen and pelvis: Please see full report for complete details. In summary, no free air or fluid collection in the abdomen. Large volume of stool in the colon. No obstruction is seen. IMPRESSION This is a 71-year-old male with a history of CVA who lives in the longterm who presented with abdominal pain and vomiting. Patient is status post EGD and found to have esophagitis and had his G tube changed. There was some concern for pneumonia; however, the CT scan of the chest was not consistent with consolidative changes. Patient does have 2 of 2 positive blood cultures for coag-negative Staph. 15 minutes apart. Patient, however, has not had any significant fever and only had mild leukocytosis, which is improving. Unclear if this is significant. At this time, would recommend to continue vancomycin and ask microbiology to (1) out the coag-negative Staph. from 11/11/2016. If both are the same species, will just need to continue a short-term course of vancomycin and may need to evaluate for a MABEL. If they are a different species, will discontinue antibiotic and patient can go back to the longterm. Thank you for allowing us to participate in the care of this patient. Further recommendations to follow pending patient's clinical course. Dictated by... Miguel PittsPAmintaRAmintaN. for Sin Lock TD: 11/14/2016 08:23 Unit #: [id number] #: [id number] Patient: JALEN HERNANDEZ JOB #: [id number] CONSULTATION REPORT Page 1 of 1 X X CONSULTATION REPORT
--- NOTE | ~2016-11-11 | DS ---
Unit #: [id number] #: [id number] Patient: JALEN HERNANDEZ 186832 [address] [address] [id number] I MR#: [id number] NAME: JALEN HERNANDEZ ROOM: 561 Age: 71 Sex: M Admission Date: 11/11/2016 : 1945 Discharge Date: Attending Physician: Bettye Barajas M.D. Primary Care Physician: No Primary Care Physician DISCHARGE SUMMARY ADDENDUM Since the time of last dictation, the patient has had an EGD with change out of his PEG tube by Dr. Bentley. Dictated by... LEATHA Jacob TD: 11/16/2016 13:42 JOB #: [id number] DISCHARGE SUMMARY Page 1 of 1 X X DISCHARGE SUMMARY
--- NOTE | ~2016-11-11 | CO ---
Unit #: [id number] #: [id number] Patient: JALEN HARRIS [id number] [address] [address] [id number] I MR#: [id number] NAME: JALEN HARRIS ROOM: 561 Age: 71 Sex: M Admission Date: 11/11/2016 : 1945 Attending Physician: Bettye Barajas M.D. Consultation Date: 11/12/2016 CONSULTATION REPORT REASON FOR CONSULTATION Drainage from the tube and coffee-grounds emesis. HISTORY OF PRESENT ILLNESS Mr. Harris is a 71-year-old white gentleman, who has a history of stroke and is a resident of [facility]. The patient is immobilized in bed and needs total care. He has an indwelling PEG tube for enteral feeding. He was brought to the emergency room at [facility] with history of abdominal pain along with nausea and vomiting. According to the daughter, he had vomited coffee-grounds emesis and his tube also drained some coffee-ground material. The CT scan showed bilateral pulmonary infiltrate versus pneumonitis and fecal loading of the colon. The patient himself is unable to provide much history, although he is able to understand questions. PAST MEDICAL HISTORY Significant left hemispheric CVA with right hemiparesis; dysphagia and dysplasia; indwelling PEG tube; peripheral arterial disease; hypertension; coronary artery disease, status post coronary bypass graft; His PEG tube was placed by me sometime in the last year. HOME MEDICATIONS Included Lovenox, acetaminophen, albuterol, milk of magnesia, nitroglycerin, Tylenol, pravastatin, metoprolol, and isosorbide. ALLERGIES He is allergic to iodine and OxyContin. FAMILY HISTORY Not possible due to the patient's mental status. SOCIAL HISTORY Not possible due to the patient's mental status. REVIEW OF SYSTEMS Review of organ systems not possible due to the patient's mental status. PHYSICAL EXAMINATION GENERAL: He is awake and looking around intently. VITAL SIGNS: Stable with a temperature of 98.1, pulse is 75 per minute and regular, respirations 20, and blood pressure 139/75. He weighs 211 pounds, appears well nourished. HEENT: He has mild pallor. There being no icterus, lymphadenopathy, or Unit #: [id number] #: [id number] Patient: JALEN HARRIS peripheral edema. CARDIOVASCULAR: Normal heart sounds. No murmurs. LUNGS: Auscultation over the lungs reveal normal breath sounds. Good air entry. ABDOMEN: Soft, and nontender. Liver and spleen are not palpable. Bowel sounds normal. The PEG site appears to be having a like appearance from chronic scarring. There is no drainage surrounding the PEG tube. DIAGNOSTIC STUDIES LABORATORY RESULTS: Shows a [place] [address], hemoglobin was 16, and platelet count is 186. INR is 1.1. Serum chemistry shows a BUN and creatinine of 27 and 1.1 glucose of 115. Rest of the metabolic profile is normal. In fact, his albumin is 4.0 indicating he has excellent nutrition. INR is 1.1. CLINCAL IMPRESSION Possible the patient may have some degree of leakage around the tube, although I cannot discern that. He may have peptic ulcer disease or more likely esophagitis. A diagnostic upper endoscopy and change the PEG tube to appropriate sized feeding tube is a reasonable thing to do. The above plan discussed with the patient's daughter, she was present at bedside. Thank you very much for asking me to see this pleasant gentleman. I appreciate the consult. Dictated by... Sin Devine/narciso TD: 11/13/2016 05:59 JOB #: [id number] CONSULTATION REPORT Page 1 of 1 X Jayden Bentley MD X CONSULTATION REPORT
--- NOTE | ~2016-11-11 | CT4 ---
[facility] A Service of [facility] RADIOLOGY TEXT RESULTS PATIENT: JALEN HERNANDEZ LOCATION: [facility] 561-01 : [birth year] UNIT #: [id number] AGE: [address]: Bettye Barajas MD SEX: M ORDER DR: [id number] [facility] [address] [place], [place] [address] [id number] I MR#: [id number] Acc #: [id number] NAME: JALEN HERNANDEZ : 1945 SEX: M STUDY DATE/TIME: 11/16/2016 17:51 UNIT: [facility] ROOM: [facility] STUDY DESCRIPTION: CT Abd and Pelv Wo Cont Attending Physician: Bettye Barajas M.D. Ordering Physician: Bettye Barajas M.D. Primary Care Physician: No Primary Care Physician MEDICAL IMAGING REPORT This report is preliminary unless electronic signature is present EXAM CT abdomen and pelvis without contrast HISTORY Abdomen pain and fever for [address] exam was performed with one or more of the following radiation dose reduction techniques: automatic exposure control, adjustment of mA and/or kV according to patient size, and iterative reconstruction. FINDINGS CT abdomen and pelvis was performed without contrast CT abdomen: Moderately extensive calcified pleural plaque in the right lung base. Minimal atelectasis in the posterior lower lobes. Incidental calcified granuloma in the lateral right middle lobe. Gastrostomy tube extends into the anterior margin of the distal stomach in the upper abdominal midline. No bowel dilatation. A moderate amount of stool in nondistended colon. The spleen, pancreas, kidneys, and adrenal glands are normal. Normal caliber abdominal aorta. No ascites. No inflammatory stranding. CT pelvis: Moderate amount of stool in the rectum. Mild prostatic enlargement. Urinary bladder is normal. The proximal appendix is normal. The tip the appendix is not well seen. No adenopathy. Moderate multilevel degenerative changes of the lumbar spine. IMPRESSION 1. No acute findings in the abdomen or pelvis. Gastrostomy tube tip in the distal stomach in satisfactory position. 2. No bowel obstruction. [facility] A Service of [facility] RADIOLOGY TEXT RESULTS PATIENT: JALEN HERNANDEZ LOCATION: [facility] 561-01 : [birth year] UNIT #: [id number] AGE: [address]: Bettye Barajas MD SEX: M ORDER DR: 3. Moderate amount of stool in the rectum. 4. Mild prostatic enlargement. 5. Incidental fairly extensive calcified pleural plaque in the right lung base. Dictated by... Shorty Barajas M.D. THIS IS AN ELECTRONICALLY VERIFIED REPORT Shorty Barajas M.D. at 11/16/2016 11:13 PM CALVIN/jass TD: 11/16/2016 22:44 JOB #: [id number] MEDICAL IMAGING REPORT Page 1 of 1 COPY
--- NOTE | ~2016-11-11 | DS ---
Unit #: [id number] #: [id number] Patient: JALEN HERNANDEZ [id number] [address] [place], [place] [address] [id number] I MR#: [id number] NAME: JALEN HERNANDEZ ROOM: 561 Age: 71 Sex: M Admission Date: 11/11/2016 : 1945 Discharge Date: 11/12/2016 Attending Physician: Bettye Barajas M.D. DISCHARGE SUMMARY DISCHARGE DIAGNOSES 1. Abdominal pain. 2. Cellulitis around the percutaneous endoscopic gastrostomy tube site. 3. Constipation. 4. Drainage from the percutaneous endoscopic gastrostomy tube. CONSULTANTS Dr. Bentley with Gastroenterology. PROCEDURES Patient is to have an EGD and possible PEG tube exchange by Dr. Bentley. DIAGNOSTIC STUDIES LABORATORY ON DAY OF DISCHARGE: BMP with glucose of 115, BUN 27, creatinine 1.1, sodium 140, potassium 3.7, chloride 103, CO2 of 27, and calcium 9. CBC with WBC of 15.2, RBC 5.48, hemoglobin 16.4, hematocrit 50.1, MCV 91.5, MCH 30, MCHC 32.8, RDW 14.8, platelets 186,000, and MPV is 11.1. Urinalysis when assessed was unremarkable. Blood culture has no growth at this time. IMAGING: CT abdomen and pelvis on November 11, 2016, impression: (1) Abnormal exam. Patient has a gastrostomy tube in place entering the mid gastric body. No change from October 08, 2016. No complicating features. No perigastric inflammatory change. No free air or fluid collection in the abdomen. There is no inflammatory change around the percutaneous path of the gastrostomy tube. (2) Increased patchy and linear densities in the bilateral lung bases compared to October 08, 2016, probably reflecting components of atelectasis and pneumonitis superimposed on some areas of chronic fibrotic change. (3) Calcified pleural plaques predominately on the right. Correlate with any known prior asbestos exposure. (4) Large volume of stool in the colon particularly in the rectum. No obstructing process is seen. Stool seen through the anus. The appearance could represent constipation or fecal impaction. There is no focal mass lesion, and there is no perirectal inflammatory change. (5) Uncomplicated colonic diverticulosis. (6) Nonobstructing bilateral renal calculi. (7) There is mild left pyelocaliectasis and proximal hydroureter. No obstructing process is seen, and there are no secondary signs of recent stone passage. (8) Mild skin thickening and subcutaneous fat stranding and haziness in the anterior right lower quadrant pelvic wall. No subcutaneous air or fluid collection. (9) Extensive atherosclerotic arterial calcifications. (10) There is a small amount of air in the urinary bladder. This may be a reflection of recent instrumentation. HOSPITAL COURSE Unit #: [id number] #: [id number] Patient: JALEN HERNANDEZ The patient is a 71-year-old male with a past medical history of previous CVA and is a permanent resident at [facility], immobilization with PEG tube placement, history of essential hypertension, and coronary artery disease, who was brought from [facility] due to concern of vomiting and abdominal pain. Patient also had drainage from the PEG tube site. Patient had a CT abdomen done in the ER concerning for bilateral infiltrates versus pneumonitis and fecal impaction. Patient was admitted for pneumonitis. At the time of my assessment, patient had been afebrile and had been saturating in the mid 90s on room air. His lung exam is unremarkable. He has no signs of apparent respiratory distress. Procalcitonin was evaluated and was found to 0.07. At this time, patient was also seen in consultation by Dr. Bentley, who recommended that patient have an EGD done. We are also trying to relieve patient's stool burden with MiraLax daily, as well as soapsuds enema and lactulose via the PEG to facilitate a bowel movement. I will also be holding Tylenol No. 3 upon discharge. I do not believe that patient has an active lung infection. He does have very mild redness around the PEG tube site. It does not appear to be systemically infected. I will be discharging patient with Augmentin 875 through the PEG twice daily for the next 10 days. After scoping is done and if results are stable, he may be discharged back to [facility]. I have spoken with Ms. Melendez (1) who is patient's daughter, phone number [phone], and she is agreeable to this. DISCHARGE CONDITION Stable. DISCHARGE DISPOSITION Back to [facility]. ACTIVITY Rotate patient routinely per immobilization syndrome, so please have Wound Care assess for continued need for the PEG tube site. DISCHARGE DIET Patient will resume his previous diet with enteral support of Jevity 1.5 at 20 mL/hour, advance 10 mL every 4 hours to goal of 65 mL/hour every 24 hours. This will provide 2340 kcal, 99 grams of protein, 1185 mL of water, and free water flushes of 220 mL every 4 hours. DISCHARGE MEDICATIONS 1. ProAir 2 puffs inhaled every 4 hours as needed for wheezing and/or shortness of breath. 2. DuoNeb inhaled 1 nebulized every 6 hours as needed for wheezing. 3. Tylenol 500 mg via PEG tube 4 times daily as needed for fever or pain. 4. Norvasc 10 mg via PEG daily. 5. Metoprolol tartrate 100 mg via PEG twice daily. 6. Milk of Magnesia 30 mL via PEG daily as needed for constipation. 7. MiraLax 17 grams via PEG daily. 8. Guaifenesin 30 mL via PEG twice daily as needed for congestion. 9. Pravachol 80 mg via PEG at bedtime. 10. Lisinopril 20 mg via PEG daily. 11. Aspirin 325 mg via PEG daily. 12. Plavix 75 mg via PEG daily. 13. Flexeril 10 mg via PEG 3 times daily as needed for muscle spasms. Unit #: [id number] #: [id number] Patient: JALEN HERNANDEZ 14. Isosorbide mononitrate 10 mg via PEG 3 times daily. 15. Nitrostat 0.4 mg sublingual as needed for chest pain. 16. Augmentin 875 via PEG twice daily for the next 10 days. 1. Dictated by... Day Cano PA-C for Sin Weeks TD: 11/12/2016 22:09 JOB #: [id number] DISCHARGE SUMMARY Page 1 of 1 X X DISCHARGE SUMMARY
--- NOTE | ~2016-11-11 | FU ---
[facility] Nutrition Therapy DATE: 11/16/16 Patient: JALEN HERNANDEZ Physician: THAD Address: [facility] Room/Bed: [address] [place] [address], Zip: [place] [address] Admit Date: 11/11/16 Date of : 45 Height: 6 2 Weight: 215 97.8 NUTRITION MONITORING/FOLLOW-UP: Reason: Enteral nutrition follow-up Admitting dx: 71 y/o male admitted from [facility] with abdominal pain and coffee ground emesis Anthropometrics: Ht: 74", admission wt: 100 kg, current wt: 97.8 kg, BMI: 27 (overweight; based on admission wt) Labs: Glucose 174, POC 153-192, BUN 26, K/Na WNL, Mg WNL on 11/13, Phos not measured Meds: Miralax, Milk of Mg, Vanc I&O's: 1073/654, last BM 11/15 (small), no apparent N/V/D Skin: Abrasion R bai, redness g-tube site Edema: BLE trace, R hand 2+ Estimated Nutrition Needs: 1198-5517 kcals/day (20-25 kcals/kg admission wt) 80-100 g protein/day (0.8-1.0 g/kg admission wt) Fluids consistent with kcal needs or per MD Assessment: Chart reviewed, events noted. Patient is resident of [facility], is non-verbal. Hx dysphagia with PEG tube. EGD this hospital stay showed gastritis. Cultures positive for staph on 11/11 and patient was started on Vanc. Cultures then negative on 11/13, ID following, patient remains on Abx. He is on room air, some dyspnea with exertion. He is tolerating EN with Jevity 1.5 @ goal rate of 65 ml/hr via PEG tube, 20 ml GRV noted. Has received 77% goal volume past 24 hours per pump history. Patient unable to answer any questions, however I explained I was assessing his enteral feedings. He did not appear to have any abdominal pain, nausea or vomiting. He remains confused and lethargic. See nutrition goals, dx and recs as stated below. RD wrote in chart to continue current EN regimen. Will continue to follow. Dx: Inadequate oral intake r/t dysphagia, PMH AEB PEG, home EN - ACTIVE Intervention: Continue current EN regimen Monitoring, Evaluation and Goals: 1. EN to provide > 80% goal volume x 24 hours -NOT MET, IN PROGRESS [facility] Nutrition Therapy DATE: 11/16/16 Patient: JALEN HERNANDEZ Physician: THAD Address: [facility] Room/Bed: [address] [place] [address], Zip: [place] [address] Admit Date: 11/11/16 Date of : [birth year] Height: 6 2 Weight: 215 97.8 2. Maintain weight status - IN PROGRESS 3. GI function WNL - IN PROGRESS 4. Labs WNL - IN PROGRESS (mild hyperglycemia noted) No new goals to add at this time Monitor: Per protocol, criteria to determine if above goals met Recommendations: Continue current enteral nutrition regimen: Jevity 1.5 @ 65 ml/hr via PEG. This will provide 2340 kcals, 99 g protein and 1185 ml water. Free water flushes of 200 ml q 4 hours or per MD. Status: Mild nutrition risk Respectfully, Lexi Espino, RD, LD Food and Nutritional Services [facility] cc: client file
--- NOTE | ~2016-11-11 | CT4 ---
[facility] A Service of [facility] RADIOLOGY TEXT RESULTS PATIENT: JALEN HERNANDEZ LOCATION: [facility] 561-01 : 45 UNIT #: [id number] AGE: [address]: Bettye Barajas MD SEX: M ORDER DR: [id number] [facility] [address] [place], [place] [address] [id number] I MR#: [id number] Acc #: [id number] NAME: JALEN HERNANDEZ : 1945 SEX: M STUDY DATE/TIME: 11/11/2016 19:06 UNIT: [facility] ROOM: [facility] STUDY DESCRIPTION: CT Abd and Pelv Wo Cont Attending Physician: Bernadette Keene M.D. Ordering Physician: Dwight Casey M.D. Primary Care Physician: Primary Care Physician No MEDICAL IMAGING REPORT This report is preliminary unless electronic signature is present EXAM CT abdomen and pelvis 11/11/2016. HISTORY Stomach pain after G-tube drainage times today. Unable to raise arms. The CT exam was performed with one or more of the following radiation dose reduction techniques: automatic exposure control, adjustment of mA and/or kV according to patient size, and iterative reconstruction. FINDINGS CT abdomen and pelvis performed without administration of oral or intravascular contrast. No prior CTs of the abdomen for Jimenez. Limited views of the abdomen from CT chest dated 10/08/2016. Patchy airspace disease at the bilateral lung bases. More pronounced overall than on prior examination. Components of atelectasis and pneumonia may be present. There are some areas more suggestive of chronic subpleural fibrotic change. There are calcified pleural plaques bilaterally. Correlate with any known asbestos exposure. These could also be a reflection of remote pleural infection or pleural hemorrhage. Mild cardiac enlargement. Liver, gallbladder, spleen, pancreas, adrenal glands unremarkable. Multiple nonobstructing renal calculi bilaterally. Largest on the right measuring about 3 mm. Largest on the left measuring about 2 mm. There is mild left pyelocaliectasis and proximal ureteral distension but there is no ureteral calculus and no secondary sign of recent stone passage. This may be the normal state for this patient. No prior renal imaging for comparison. Appearance could be further evaluated with standard intravenous pyelography or CT urography. There are perinephric stranding changes probably chronic. Correlate with any clinical signs or symptoms of acute renal inflammation. CT Pelvis: No inguinal adenopathy. The urinary bladder contains a small volume of urine. There is air in the urinary bladder likely reflecting STS. [facility] A Service of [facility] RADIOLOGY TEXT RESULTS PATIENT: JALEN HERNANDEZ LOCATION: [facility] 561-01 : [birth year] UNIT #: [id number] AGE: [address]: Bettye Barajas MD SEX: M ORDER DR: recent instrumentation. Please correlate clinically. Mild bladder wall prominence likely reflecting low volume of bladder. No perivesical inflammatory change. Correlate with any clinical signs or symptoms of cystitis. There is no pelvic fluid collection. No pelvic or retroperitoneal adenopathy. Distal esophagus unremarkable. There is a gastrostomy tube which enters the mid gastric body. No change from 10/08/2016. There is no inflammatory change in the percutaneous path of the gastrostomy tube. There is no free air in the abdomen. No perigastric inflammatory change. The small bowel is unremarkable. The appendix is normal. There is a large stool burden in the transverse colon and descending colon with a particularly large stool burden in the rectum. Rectum measures up to about 6.4 cm in width. There is a suggestion of slight rectal wall thickening. No mass lesion or obstructing process is seen. Stool is seen throughout the anus. Findings may be a reflection of constipation or fecal impaction. Correlate clinically. There is a left hemicolon uncomplicated diverticulosis. There is some skin thickening and subcutaneous fat stranding and haziness in the right lower quadrant anterior pelvic wall. Correlate with any indications of cellulitis or any recent intervention in this region. There is no subcutaneous air or fluid collection. Extensive atherosclerotic arterial calcifications. Configuration of intimal calcifications in the aorta raise possibility of ulcerated plaques or prior dissection. This could best be further evaluated with contrast-enhanced study. Multilevel degenerative change in the spine. No acute-appearing bony abnormality. Baseline spinal canal narrowing with multifocal disc bulges/disc osteophyte complexes and multilevel mild spinal canal narrowing. Prior median sternotomy. No acute-appearing bony abnormality. IMPRESSION 1. Abnormal examination. Please see complete dictation above for full details. Patient has a gastrostomy tube in place entering the mid gastric body. No change from 10/08/2016. No complicating features. No perigastric inflammatory change. No free air or fluid collection in the abdomen. There is no inflammatory change around the percutaneous path of the gastrostomy tube. 2. Increased patchy and linear densities at the bilateral lung bases compared to 10/08/2016 probably reflecting components of atelectasis and pneumonitis superimposed on some areas of chronic fibrotic change. 3. Calcified pleural plaques predominately on the right. Correlate with any known prior asbestos exposure. 4. Large volume of stool in the colon particularly the rectum. No obstructing process is seen. Stool seen through the anus. The appearance could represent constipation or fecal impaction. There is a suggestion of very mild rectal wall prominence but there is no focal mass lesion and there is no perirectal inflammatory change. 5. Uncomplicated colonic diverticulosis. 6. Nonobstructing bilateral renal calculi. 7. There is mild left pyelocaliectasis and proximal hydroureter. No obstructing process is seen and there are no secondary signs of STS. [facility] A Service of [facility] RADIOLOGY TEXT RESULTS PATIENT: JALEN HERNANDEZ LOCATION: [facility] 561-01 : 45 UNIT #: [id number] AGE: [address]: Bettye Barajas MD SEX: M ORDER DR: recent stone passage. This may represent the normal physiologic state for the patient. It could best be further evaluated with standard intravenous pyelography or CT urography. I have no prior imaging of this region for comparison. 8. Mild skin thickening and subcutaneous fat stranding and haziness in the anterior right lower quadrant pelvic wall. No subcutaneous air or fluid collection. Correlate with any indication of localized infection/inflammation at this level or any recent instrumentation. 9. Extensive atherosclerotic arterial calcifications. Configuration of intimal calcifications in the abdominal aorta raise the possibility of areas of ulcerated plaque or possible chronic dissection. This could best be further evaluated in absence of prior studies for comparison with contrast-enhanced study. There is no acute appearing vascular abnormality. 10. There is a small amount of air in the urinary bladder. This may be a reflection of recent instrumentation. Correlate clinically. The bladder wall is mildly prominent likely reflecting its low volume. Correlate with any clinical signs or symptoms of cystitis. Dictated by... Librado Pineda M.D. THIS IS AN ELECTRONICALLY VERIFIED REPORT Librado Pineda M.D. at 11/12/2016 11:31 AM Netta TD: 11/12/2016 07:40 JOB #: [id number] MEDICAL IMAGING REPORT Page 1 of 1 COPY
--- NOTE | ~2016-11-11 | HP ---
Unit #: [id number] #: [id number] Patient: JALEN HERNANDEZ [id number] [address] [address] [id number] I MR#: [id number] NAME: JALEN HERNANDEZ ROOM: 561 Age: 71 Sex: M Admission Date: 11/11/2016 : 1945 Attending Physician: Adebayo Keene M.D. Primary Care Physician: No Primary Care Physician HISTORY AND PHYSICAL CHIEF COMPLAINT Abdominal pain, vomiting coffee ground emesis. HISTORY OF PRESENT ILLNESS The patient is a 71-year-old with a history of a previous CVA who is a resident of [facility], immobilized with a PEG tube, history of hypertension and coronary artery disease, brought to the emergency room from [facility] with abdominal pain. The patient was also found to have drainage from the PEG tube site. The patient had a CT of the abdomen that showed concerning for the bilateral infiltrate versus pneumonitis and fecal impaction and the patient is being admitted for the above reasons. The patient was concerned about the coffee ground emesis at the [facility] but none was noted in the emergency room once the patient arrived here. The patient is a poor historian and history is obtained by talking to the ER physician and the nurse at the bedside. PAST MEDICAL HISTORY 1. History of coronary artery disease, status post CABG. 2. Hypertension. 3. 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 Has a PEG tube in place. 4. Peripheral vascular disease. ALLERGIES Iodine and OxyContin. HOME MEDICATIONS He is on: 1. Isosorbide. 2. Metoprolol. 3. Sodium. 4. Pravastatin. 5. Tylenol. 6. Nitroglycerin. 7. Milk of magnesia. 8. Albuterol. 9. Acetaminophen. 10. Lotrisone. 11. Lovenox. 12. Jevity. 13. Latha's Butt Cream. FAMILY HISTORY From the record, family history unable to be obtained. Unit #: [id number] #: [id number] Patient: JALEN HERNANDEZ SOCIAL HISTORY The patient lives at [facility], is a Full Code from the records. REVIEW OF SYSTEMS Unable to be obtained. PHYSICAL EXAMINATION GENERAL: The patient is lying on the bed, not in acute distress. VITALS: Temperature 98.3, pulse 86, respiratory rate 18, blood pressure 153/85, sat'ing 100% at room air. HEAD: Atraumatic, normocephalic. EENT: Pupils equal, round, reactive to light and accommodation. Extraocular movements are intact. Dry mucous membranes. NECK: Supple. LUNGS: Decreased air entry at the bases. Coarse breath sounds. HEART: Regular rate and rhythm. ABDOMEN: Soft. Positive bowel sounds. PEG tube in place with drainage surrounding the PEG tube. EXTREMITIES: No cyanosis, no clubbing. NEUROLOGICAL: The patient has expressive aphasia. The patient has right hemiparesis and is very sleepy, not following commands. Very minimal interaction. DIAGNOSTIC STUDIES LABORATORY DATA: Troponin less than 0.03, sodium 138, potassium 3.5, chloride 106, bicarb 23, glucose 99, BUN 23, creatinine 0.9, calcium 9.3, AST 25, ALT 36, albumin 4, lipase 22. UA shows trace leukocyte esterase, 1+ protein, WBC 12.5, hemoglobin 17, hematocrit 51.5, neutrophils 8.4, troponin less than 0.05. ASSESSMENT AND PLAN 1. Abdominal pain. 2. Pneumonitis. 3. Constipation. 4. Drainage from the (1) tube. Plan is to admit patient to observation. Patient will be started on empiric IV antibiotics with Zosyn and can check the lactic level. If it is elevated, then initiate the sepsis protocol and patient might need GI consult for the PEG tube replacement versus drainage around the PEG tube. Continue with laxatives for the constipation or GI consult for the disimpaction of the stools. Further recommendations will follow as more lab results are available. Dictated by Sin Guzman TD: 11/12/2016 05:18 JOB #: [id number] Unit #: [id number] #: [id number] Patient: JALEN HERNANDEZ HISTORY AND PHYSICAL Page 1 of 1 X ADEBAYO KEENE MD HISTORY AND PHYSICAL
--- NOTE | ~2016-11-11 | A ---
[facility] Nutrition Therapy DATE: 11/12/16 Patient: JALEN HERNANDEZ Physician: THAD Address: [facility] Room/Bed: [address] [place] [address], Zip: [place] [address] Admit Date: 11/11/16 Date of : [birth year] Height: 6 2 Weight: 211 96 NUTRITIONAL ASSESSMENT: REASON: SEEING PT FOR 1 NUTRITIONAL RISK PT RE: TUBEFEEDS DX: 71 Y.O. MALE ADMITTED FOR ABDOMINAL PAIN PMH: CVA, GERD, PEG (DYSPHAGIA), CABG, HTN, PVD Anthropometrics: 6'2", WT: 211# (100 KG), BMI 27 Labs: GLU 115 BUN 27 Meds: LIPITOR, LACTULOSE, MIRALAX, ZESTRIL, PLAVIX, NORVASC, MOM I/O & Bowel function: 0/554. LAST BM 11/12/16 Skin Integrity: DRY Estimated Nutrition Needs: 2153-8900 KCAL (20-25 KCAL/KG) 80-100 G PRO (0.8-1.0 G/KG) 8592-0155 ML H20 (1ML/KCAL) Assessment: CHART REVIEWED, EVENTS NOTED. 71 Y.O. MALE ADMITTED FOR ABDOMINAL PAIN. PT IS CURRENTLY A RESIDENT AT [facility] AND RECEIVES HOME TUBE FEEDS VIA PEG TUBE DUE TO DYSPHAGIA. PT IS NON-VERBAL, RD VISITED AT BEDSIDE BUT WAS UNABLE TO GATHER ANY INFORMATION. PT RECEIVES JEVITY 1.5 @ 70 ML/HR X 22 HOURS AT HOME (PER [employer]). PT IS CURRENTLY NPO FOR EGD. THERE HAS BEEN NO SIGNIFICANT WEIGHT CHANGES RECENTLY. RD WILL CONTINUE TO FOLLOW. OF NOTE, RD ASSESSED PT IN SEPTEMBER 2016. Dx: INADEQUATE ORAL INTAKE R/T DYSPHAGIA, PMH AEB PEG IN PLACE, HOME ENTERAL NUTRITION SUPPORT Intervention: 1. NPO DIET 2. ENTERAL NUTRITION SUPPORT VIA PEG TUBE Monitoring, Evaluation and Goals: 1. ENTERAL NUTRITION; RECEIVE >80% OF ESTIMATED NUTRITION NEEDS AT GOAL X 24 HOURS. 2. WEIGHT; MAINTAIN HEALTHY WEIGHT 3. GI; PROMOTE REGULAR GI FUNCTION 4. LABS; WNL Recommendations: 1. ENTERAL NUTRITION SUPPORT OF JEVITY 1.5 @ 20 ML/HR, ADVANCE 10 ML Q 4 HOURS TO GOAL [facility] Nutrition Therapy DATE: 11/12/16 Patient: JALEN HERNANDEZ Physician: THAD Address: [facility] Room/Bed: [address] [place] [address], Zip: [place] [address] Admit Date: 11/11/16 Date of : [birth year] Height: 6 2 Weight: 211 96 RATE OF 65 ML/HR X 24 HOURS -THIS WILL PROVIDE 2340 KCAL, 99 G PRO, 1185 ML H20 -FREE H20 FLUSHES OF 220 ML q [address] WITH ANY FURTHER QUESTIONS. MONITOR FOR SIGNS OF INTOLERANCE OF ENTERAL NUTRITION SUPPORT. RD WILL F/U PER PROTOCOL PT IS MILD/MODERATELY COMPROMISED. Respectfully, ABDULAZIZ FRIED, STAGE SET UP WORKER TRISTEN SUE MS, RD, LD Food and Nutritional Services [facility] cc: client file
--- NOTE | ~2016-11-11 | DS ---
Unit #: [id number] #: [id number] Patient: JALEN HERNANDEZ [id number] [address] [place], [place] [address] [id number] I MR#: [id number] NAME: JALEN HERNANDEZ ROOM: 216 Age: 71 Sex: M Admission Date: 11/11/2016 : 1945 Discharge Date: 11/20/2016 Attending Physician: Bettye Barajas M.D. DISCHARGE SUMMARY REASON FOR ADMISSION Abdominal pain, fever. HISTORY OF PRESENT ILLNESS/HOSPITAL COURSE Patient is a 71-year-old male with a past medical history of prior CVA, essentially nonverbal, permanent resident of [facility], and chronic immobilization syndrome, status post PEG tube placement, who presented secondary to drainage at the PEG tube site and abdominal pain, as well as a low-grade fever. He underwent a CT abdomen and pelvis in the emergency room which was concerning for bilateral infiltrates versus pneumonitis and/or fecal impaction, and thus he was admitted for the same. Dr. Bentley saw and evaluated the patient from gastroenterology services. Patient underwent upper GI endoscopy. He had a PEG tube evaluation, as well as some mild erythema which was noted around his PEG tube site. He was started on p.o. antibiotics. Through hospital course, his blood cultures x2 were positive for staphylococcus coag bacteria. This prompted subsequently an ID consultation. Infectious disease services saw and evaluated the patient. They recommended a 2D echocardiogram which he underwent which was negative for acute vegetations. Patient also underwent a CT chest this hospital admission secondary to aforementioned positive blood cultures. This CT chest without contrast was performed on November 13, 2016. It did reveal no evidence of a consolidative pneumonia. There were several nodular densities which were noted and followed. CT was recommended in three months. There was a 2.1 cm thyroid nodule which was also noted. Repeat blood cultures came back negative. Infectious disease services followed the patient through the hospital course and did recommend additional vancomycin and Zosyn for an additional four days post-discharge. Please note, patient's PEG tube was changed by Dr. Bentley this hospital admission. In regards to the patient's nonverbal status, CVA history, and chronic immobility syndrome, I did have a gilmar discussion with the patient's son who was present at bedside, and I did recommend and asked to consider hospice as longterm his prognosis is poor. He has been made a Do Not Resuscitate through this hospital course, but unfortunately and overall, Unit #: [id number] #: [id number] Patient: JALEN HERNANDEZ his quality of life is dismal. Recurrent hospitalizations may be and are detrimental to his overall long-term wellbeing. This was reinforced with the patient's son. Hospice services should be consulted and will follow [facility]. At the time of discharge, his hemoglobin is 13.3, and his BMP shows a creatinine of 1. FINAL DISCHARGE DIAGNOSES 1. Abdominal pain, now resolved. 2. Mild cellulitis around percutaneous endoscopic gastrostomy tube site, now improved. 3. Chronic constipation, now resolved. 4. Staphylococcus hominis bacteremia. 5. Nonverbal. 6. Chronic dysphagia. 7. Status post percutaneous endoscopic gastrostomy. 8. History of cerebrovascular accident in the past. 9. Morbid obesity. 10. Peripheral vascular disease. 11. Hypertension. 12. Prior history of coronary artery disease, status post coronary artery bypass grafting. DISCHARGE MEDICATIONS 1. Proventil HFA 2 puffs q.4 p.r.n. 2. DuoNeb aerosol solution q.6 scheduled. 3. Tylenol 650 mg q.6 p.r.n. 4. Norvasc 10 mg daily. 5. Lopressor 100 mg b.i.d. 6. Milk of Magnesia 30 mL daily p.r.n. 7. MiraLax per PEG daily. 8. Robitussin 30 mL per G-tube b.i.d. 9. Lipitor 20 mg per G-tube at bedtime. 10. Aspirin 325 mg per G-tube daily. 11. Plavix 75 mg per G-tube daily. 12. Flexeril 10 mg q.8 p.r.n. muscle spasms. 13. Isosorbide dinitrate 10 mg per G-tube t.i.d. 14. Sublingual nitroglycerin as directed. 15. Vancomycin 1750 mg IV until November 24, 2016. 16. Zosyn 3.375 g IV q.8 until November 24, 2016. DISCHARGE CONDITION Stable. DISCHARGE DISPOSITION halfway. LONG-TERM PROGNOSIS Poor. Dictated by... Sin Weeks TD: 11/20/2016 15:05 JOB #: [id number] Unit #: [id number] #: [id number] Patient: JALEN HERNANDEZ DISCHARGE SUMMARY Page 1 of 1 X Bettye Barajas MD X DISCHARGE SUMMARY
--- NOTE | ~2016-11-11 | CR72 ---
[facility] A Service of [facility] RADIOLOGY TEXT RESULTS PATIENT: JALEN HERNANDEZ LOCATION: [facility] 561-01 : [birth year] UNIT #: [id number] AGE: [address]: Bettye Barajas MD SEX: M ORDER DR: [id number] [facility] [address] [facility]. [place], [place] [address] [id number] I MR#: [id number] Acc #: [id number] NAME: JALEN HERNANDEZ : 1945 SEX: M STUDY DATE/TIME: 11/16/2016 UNIT: [facility] ROOM: [facility] STUDY DESCRIPTION: CR Chest Single View Portable Attending Physician: Bettye Barajas M.D. Ordering Physician: Bettye Barajas M.D. Primary Care Physician: No Primary Care Physician MEDICAL IMAGING REPORT This report is preliminary unless electronic signature is present EXAM Portable chest 11/16/2016 at 11:09 hours HISTORY A 71-year-old admitted on 11/11/2016 for shortness of air, evaluate for acute infiltrate. COMPARISON Chest CT 11/13/2016. FINDINGS Two upright views of the chest demonstrate median sternotomy and CABG change. The lung volumes are low. Cardiac size and aortic contours are within normal limits. There is a calcified nodule the right midlung. Generalized interstitial prominence in the upper and mid lungs bilaterally. Findings appear similar to 10/11/2016. No definite effusion or pneumothorax. IMPRESSION 1. CABG change with normal heart size and minimally tortuous aorta. 2. Slightly low lung volumes with interstitial prominence in the mid and upper lungs and calcified granulomatous changes similar to 10/11/[address] chest 11/13/2016. No definite acute superimposed density. 3. Chronic atelectasis at the left base. Dictated by... Helen Chavez M.D. THIS IS AN ELECTRONICALLY VERIFIED REPORT Helen Chavez M.D. at 11/16/2016 3:51 PM [facility] A Service of [facility] RADIOLOGY TEXT RESULTS PATIENT: JALEN HERNANDEZ LOCATION: [facility] 561-01 : [birth year] UNIT #: [id number] AGE: [address]: Bettye Barajas MD SEX: M ORDER DR: DIANA/jass TD: 11/16/2016 14:14 JOB #: [id number] MEDICAL IMAGING REPORT Page 1 of 1 COPY
--- NOTE | ~2016-11-11 | OR ---
Unit #: [id number] #: [id number] Patient: JALEN HERNANDEZ [id number] [address] [place], [place] [address] [id number] I MR#: [id number] NAME: JALEN HERNANDEZ ROOM: 561 Date of Procedure: 11/12/2016 Admission Date: 11/11/2016 Surgeon: Jayden Bentley M.D. : 1945 Attending Physician: Bettye Barajas M.D. Primary Care Physician: Primary Care Physician No OPERATIVE REPORT PREOPERATIVE DIAGNOSES The patient has presented with history of coffee-grounds emesis and drainage on the tube, which is blood-stained. He has a history of stroke with right hemiparesis and is a resident of [facility]. He has an indwelling PEG tube. PROCEDURES PERFORMED Upper gastrointestinal endoscopy and endoscopic removal of the percutaneous endoscopic gastrostomy tube and replacement with a new 24-St Helenian replacement gastrostomy tube. POSTOPERATIVE DIAGNOSES 1. The previously placed PEG tube's inner mushroom was impeded in the wall of the stomach and the mushroom was completely impeded in the wall of the stomach. A large deep ulcer was seen after the tube was dislodged with some tugging and pressure. 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 2. Rest of examination up to third part of duodenum was normal. The gastrostomy tube was removed endoscopically and a new 24-St Helenian replacement tube was placed with the previous fistula. Extreme caution was used in placing the new tube. Since it is a larger caliber tube, it should plug the larger gap left by the removal of the previous tube. RECOMMENDATIONS Following placement of the tube, considerable discussion was held with the patient's and is explained to her that the tube should not be tightened by pulling on the tube or by closing the external securing device closer to skin. This is likely to cause further tissue necrosis. It will take at least 3 to 4 months for the large deep ulcers in the stomach to heal up on b.i.d. PPI therapy. SEDATION USED MAC. DESCRIPTION OF PROCEDURE Following detailed explanation of the potential risks and complications of an upper endoscopy, namely perforation, bleeding, and complications related to sedation, the patient was brought to GI lab and laid in the supine position with the head in the bed elevated. Lubricated tip of the Olympus video upper endoscope was passed through bite block into the proximal esophagus under direct vision. The entire esophageal mucosa was Unit #: [id number] #: [id number] Patient: JALEN HERNANDEZ examined and appeared normal. The scope was then advanced into the gastric cavity and the latter was insufflated. The gastric cavity was then examined. The inner mushroom of the PEG tube was then noted to be completely impeded in the wall of the gastric cavity. Whether it had gone through the mucosa into the submucosa and deeper layers, it was hard to say as it was a deep ulcer. Once the tube was gently tugged and pulled away from the ulcerated area, the underlying mucosa showed fresh blood from the ulcer. This was minimal ooze however. It was therefore decided the underlying fistula was also larger due to the tissue necrosis from the pressure off the mushroom against the securing device outside the skin. We then removed the PEG tube by cutting the tube with a pair of scissors just outside the skin and removing the mushroom endoscopically and delivering it at outside. The patient was then reintubated and after careful evaluation, a larger 24-St Helenian replacement gastrostomy tube was placed with the previous gastrocutaneous fistula ensuring that the securing device was not too tight. The duodenum and the duodenal bulb and second and third part of duodenum were found to be normal. The scope was then withdrawn in the distal esophagus. The entire esophageal mucosa was examined all the way up to pharynx, no additional findings noted. The patient tolerated the procedure without any postprocedure complications. Dictated by... Sni Devine/narciso TD: 11/18/2016 22:30 JOB #: [id number] CC: Bettye Barajas M.D. OPERATIVE REPORT Page 1 of 1 X Jayden Bentley MD X PROCEDURE OPERATIVE NOTE
[~2016-11-11 15:35] MED LIST changes: +METOPROLOL TAR100 MG PEG; +PRAVACHOL80 MG PEG
[2016-11-11 17:15] LABS: POC - CKMB 1.2 ng/mL (0.0-7.9); POC - TROPONIN <0.05 ng/mL (<=0.05)
[2016-11-11 17:28] LABS: URINE SOURCE CATH
[2016-11-11 17:33] LABS: BASOPHIL% 0.3 % (0-2.5); EOSINOPHIL# 0.2 X10e3 (0-0.7); EOSINOPHIL% 1.6 % (0.0-7.0); HEMATOCRIT 51.5 % (38.0-50.0); LYMPHOCYTE% 23.7 % (17.0-45.0); MEAN CELL VOLUME 91.1 FL (83-96); MONOCYTE# 0.9 X10e3 (0-1.0); NEUTROPHIL# 8.4 X10e3 (1.5-7.1); NEUTROPHIL% 67.4 % (40-75); PLATELET COUNT 223 X10e3 (140-420); RED BLOOD COUNT 5.65 X10e (3.90-5.60); RED CELL DISTRIBUTION WIDTH 14.9 % (11.0-15.5); WHITE BLOOD COUNT 12.5 X10e3 (4.0-10.5)
[2016-11-11 17:34] LABS: DIFF IND NO
[2016-11-11 17:35] LABS: URINE APPEARANCE CLEAR; URINE BILIRUBIN NEG (NEG); URINE BLOOD NEG (NEG); URINE COLOR YELLOW; URINE GLUCOSE NEG (NEG); URINE KETONE NEG (NEG); URINE LEUKOCYTE ESTERASE TRACE (NEG); URINE NITRATE NEG (NEG); URINE PH 6.5 (5-8); URINE PROTEIN 1+ (NEG); URINE SPECIFIC GRAVITY 1.021 (1.003-1.035)
[2016-11-11 17:37] LABS: U HYALINE CASTS AUWI 0-2 /[LPF]; URINE BACTERIA AUWI NEG (NEGATIVE); URINE SQUAMOUS EPITHELIAL CELL NONE SEEN /[HPF]; UWBCS1 AUWI 0-2 (0-5)
[2016-11-11 17:42] LABS: CULTURE INDICATED? NO
[2016-11-11 18:00] LABS: BILIRUBIN, DIRECT 0.1 mg/dL (0.0-0.2); BILIRUBIN,INDIRECT 0.7 mg/dL (0.0-0.9); BILIRUBIN,TOTAL 0.8 mg/dL (0.2-2.0); BUN/CREATININE RATIO 25.55; CALCIUM SERUM 9.3 mg/dL (8.4-10.2); CREATININE SERUM 0.9 mg/dL (0.6-1.4); GLOM FILT RATE Estimated 85.6 mL/min (>60); POTASSIUM 3.5 mmol/L (3.5-5.1)
[2016-11-12 08:11] LABS: BASOPHIL# 0.1 X10e3 (0-0.3); BASOPHIL% 0.5 % (0-2.5); EOSINOPHIL# 0.2 X10e3 (0-0.7); EOSINOPHIL% 1.2 % (0.0-7.0); HEMATOCRIT 50.1 % (38.0-50.0); HEMOGLOBIN 16.4 gm/dL (13.0-16.0); LYMPHOCYTE# 2.5 X10e3 (1.0-3.5); LYMPHOCYTE% 16.6 % (17.0-45.0); MEAN CELL VOLUME 91.5 FL (83-96); MEAN CORPUSCULAR HGB CONC 32.8 g/dL (30-36); MEAN PLATELET VOLUME 11.1 FL (6.5-11.5); MONOCYTE% 6.7 % (3.0-12.0); NEUTROPHIL# 11.4 X10e3 (1.5-7.1); PLATELET COUNT 186 X10e3 (140-420); RED BLOOD COUNT 5.48 X10e (3.90-5.60); RED CELL DISTRIBUTION WIDTH 14.8 % (11.0-15.5); WHITE BLOOD COUNT 15.2 X10e3 (4.0-10.5)
[2016-11-12 08:33] LABS: DIFF IND NO
[2016-11-12 10:04] LABS: BUN/CREATININE RATIO 24.54; CREATININE SERUM 1.1 mg/dL (0.6-1.4); GLOM FILT RATE Estimated 67.2 mL/min (>60); POTASSIUM 3.7 mmol/L (3.5-5.1)
[2016-11-13 05:55] LABS: MEAN CORPUSCULAR HEMOGLOBIN 29.9 PG (28-34); MEAN CORPUSCULAR HGB CONC 32.6 g/dL (30-36); MEAN PLATELET VOLUME 10.8 FL (6.5-11.5); RED CELL DISTRIBUTION WIDTH 15.3 % (11.0-15.5); WHITE BLOOD COUNT 13.6 X10e3 (4.0-10.5)
[2016-11-13 06:40] LABS: ALBUMIN SERUM 3.3 g/dL (3.5-5.0); BILIRUBIN,TOTAL 1.2 mg/dL (0.2-2.0); CALCIUM SERUM 8.7 mg/dL (8.4-10.2); GLOM FILT RATE Estimated 75.4 mL/min (>60); POTASSIUM 3.3 mmol/L (3.5-5.1); PROTEIN TOTAL SERUM 6.5 g/dL (6.0-8.3)
[2016-11-14 07:43] LABS: HEMATOCRIT 46.1 % (38.0-50.0); MEAN CELL VOLUME 92.8 FL (83-96); MEAN CORPUSCULAR HEMOGLOBIN 30.1 PG (28-34); MEAN CORPUSCULAR HGB CONC 32.5 g/dL (30-36); MEAN PLATELET VOLUME 11.5 FL (6.5-11.5); RED BLOOD COUNT 4.97 X10e (3.90-5.60); RED CELL DISTRIBUTION WIDTH 15.4 % (11.0-15.5); WHITE BLOOD COUNT 14.5 X10e3 (4.0-10.5)
[2016-11-14 08:41] LABS: ALBUMIN SERUM 3.5 g/dL (3.5-5.0); BILIRUBIN,TOTAL 0.8 mg/dL (0.2-2.0); CALCIUM SERUM 8.9 mg/dL (8.4-10.2); CREATININE SERUM 0.9 mg/dL (0.6-1.4); GLOM FILT RATE Estimated 85.6 mL/min (>60); POTASSIUM 3.7 mmol/L (3.5-5.1)
[2016-11-15 06:49] LABS: HEMATOCRIT 41.9 % (38.0-50.0); HEMOGLOBIN 13.5 gm/dL (13.0-16.0); MEAN CELL VOLUME 92.1 FL (83-96); MEAN CORPUSCULAR HEMOGLOBIN 29.6 PG (28-34); MEAN CORPUSCULAR HGB CONC 32.2 g/dL (30-36); MEAN PLATELET VOLUME 10.9 FL (6.5-11.5); RED BLOOD COUNT 4.55 X10e (3.90-5.60); RED CELL DISTRIBUTION WIDTH 14.9 % (11.0-15.5); WHITE BLOOD COUNT 14.8 X10e3 (4.0-10.5)
[2016-11-15 07:03] LABS: CALCIUM SERUM 8.3 mg/dL (8.4-10.2); GLOM FILT RATE Estimated 75.4 mL/min (>60); POTASSIUM 3.6 mmol/L (3.5-5.1)
[2016-11-16 06:56] LABS: HEMATOCRIT 41.1 % (38.0-50.0); HEMOGLOBIN 13.4 gm/dL (13.0-16.0); MEAN CELL VOLUME 92.5 FL (83-96); MEAN CORPUSCULAR HEMOGLOBIN 30.2 PG (28-34); MEAN CORPUSCULAR HGB CONC 32.6 g/dL (30-36); MEAN PLATELET VOLUME 11.2 FL (6.5-11.5); RED BLOOD COUNT 4.44 X10e (3.90-5.60); RED CELL DISTRIBUTION WIDTH 15.5 % (11.0-15.5); WHITE BLOOD COUNT 17.5 X10e3 (4.0-10.5)
[2016-11-16 07:22] LABS: CALCIUM SERUM 8.5 mg/dL (8.4-10.2); GLOM FILT RATE Estimated 75.4 mL/min (>60); POTASSIUM 3.8 mmol/L (3.5-5.1)
[2016-11-16 15:00] LABS: URINE APPEARANCE CLEAR; URINE BILIRUBIN NEG (NEG); URINE BLOOD NEG (NEG); URINE COLOR DK YELLOW; URINE GLUCOSE NEG (NEG); URINE KETONE TRACE (NEG); URINE LEUKOCYTE ESTERASE 1+ (NEG); URINE NITRATE NEG (NEG); URINE PROTEIN 1+ (NEG)
[2016-11-16 15:02] LABS: U HYALINE CASTS AUWI 0-2 /[LPF]; URINE BACTERIA AUWI NEG (NEGATIVE); URINE SQUAMOUS EPITHELIAL CELL NONE SEEN /[HPF]
[2016-11-17 07:30] LABS: HEMATOCRIT 40.9 % (38.0-50.0); HEMOGLOBIN 13.2 gm/dL (13.0-16.0); MEAN CELL VOLUME 92.7 FL (83-96); MEAN CORPUSCULAR HGB CONC 32.3 g/dL (30-36); MEAN PLATELET VOLUME 11.6 FL (6.5-11.5); RED BLOOD COUNT 4.42 X10e (3.90-5.60); RED CELL DISTRIBUTION WIDTH 15.5 % (11.0-15.5); WHITE BLOOD COUNT 22.2 X10e3 (4.0-10.5)
[2016-11-17 08:16] LABS: BUN/CREATININE RATIO 24.54; CALCIUM SERUM 8.3 mg/dL (8.4-10.2); CREATININE SERUM 1.1 mg/dL (0.6-1.4); GLOM FILT RATE Estimated 67.2 mL/min (>60); POTASSIUM 3.6 mmol/L (3.5-5.1)
[2016-11-18 06:19] LABS: HEMATOCRIT 38.8 % (38.0-50.0); HEMOGLOBIN 12.7 gm/dL (13.0-16.0); MEAN CELL VOLUME 92.5 FL (83-96); MEAN CORPUSCULAR HEMOGLOBIN 30.2 PG (28-34); MEAN CORPUSCULAR HGB CONC 32.7 g/dL (30-36); MEAN PLATELET VOLUME 12.1 FL (6.5-11.5); RED BLOOD COUNT 4.2 X10e (3.90-5.60); RED CELL DISTRIBUTION WIDTH 15.3 % (11.0-15.5)
[2016-11-18 07:01] LABS: BUN/CREATININE RATIO 21.66; CALCIUM SERUM 8.3 mg/dL (8.4-10.2); CREATININE SERUM 1.2 mg/dL (0.6-1.4); GLOM FILT RATE Estimated 60.5 mL/min (>60); POTASSIUM 3.4 mmol/L (3.5-5.1)
[2016-11-19 05:34] LABS: HEMATOCRIT 38.5 % (38.0-50.0); HEMOGLOBIN 12.5 gm/dL (13.0-16.0); MEAN CELL VOLUME 92.4 FL (83-96); MEAN CORPUSCULAR HGB CONC 32.4 g/dL (30-36); MEAN PLATELET VOLUME 11.9 FL (6.5-11.5); RED BLOOD COUNT 4.16 X10e (3.90-5.60); RED CELL DISTRIBUTION WIDTH 14.9 % (11.0-15.5); WHITE BLOOD COUNT 10.7 X10e3 (4.0-10.5)
[2016-11-19 06:32] LABS: CALCIUM SERUM 8.3 mg/dL (8.4-10.2); GLOM FILT RATE Estimated 75.4 mL/min (>60); POTASSIUM 3.3 mmol/L (3.5-5.1)
[2016-11-20 05:13] LABS: HEMATOCRIT 41.4 % (38.0-50.0); HEMOGLOBIN 13.3 gm/dL (13.0-16.0); MEAN CELL VOLUME 92.8 FL (83-96); MEAN CORPUSCULAR HEMOGLOBIN 29.8 PG (28-34); MEAN CORPUSCULAR HGB CONC 32.1 g/dL (30-36); MEAN PLATELET VOLUME 11.5 FL (6.5-11.5); RED BLOOD COUNT 4.46 X10e (3.90-5.60); RED CELL DISTRIBUTION WIDTH 15.1 % (11.0-15.5); WHITE BLOOD COUNT 9.4 X10e3 (4.0-10.5)
[2016-11-20 06:07] LABS: CALCIUM SERUM 8.6 mg/dL (8.4-10.2); GLOM FILT RATE Estimated 75.4 mL/min (>60); POTASSIUM 3.7 mmol/L (3.5-5.1)
== END 2016-11-20 17:57 | DRG 394 ==
LOC: CED 15:35 → CEDOF 21:58 → C5B 21:58 → CED 22:03 → CEDOF 22:03 → C5B 11-12 00:44 → CEDOF 11-12 00:44 → C5B 11-12 00:44 → C2A 11-19 12:15
PROVIDERS: Emergency Medicine; Family Medicine; Internal Medicine; Internal Medicine Gastroenterology; Physician Assistant Medical
PROC: 0D20XUZ Change Feeding Device in Upper Intestinal Tract, External Approach (ICD-10-PCS; principal; 2016-11-12 16:28)
PROC: 0DJ08ZZ Inspection of Upper Intestinal Tract, Via Natural or Artificial Opening Endoscopic (ICD-10-PCS; 2016-11-12 16:28)
DX: K94.22 Gastrostomy infection (principal); L03.311 Cellulitis of abdominal wall; I69.351 Hemiplegia and hemiparesis following cerebral infarction affecting right dominant side; K92.0 Hematemesis; R13.10 Dysphagia, unspecified; E66.01 Morbid (severe) obesity due to excess calories; B95.7 Other staphylococcus as the cause of diseases classified elsewhere; Y73.1 Therapeutic (nonsurgical) and rehabilitative gastroenterology and urology devices associated with adverse incidents; M62.3 Immobility syndrome (paraplegic); I10 Essential (primary) hypertension; I25.10 Atherosclerotic heart disease of native coronary artery without angina pectoris; Z95.1 Presence of aortocoronary bypass graft; I69.320 Aphasia following cerebral infarction; I69.391 Dysphagia following cerebral infarction; K59.09 Other constipation; Z66 Do not resuscitate; Z68.27 Body mass index [BMI] 27.0-27.9, adult; I73.9 Peripheral vascular disease, unspecified; K29.70 Gastritis, unspecified, without bleeding; K20.9 Esophagitis, unspecified; Z91.041 Radiographic dye allergy status; Z88.5 Allergy status to narcotic agent
CPT/HCPCS: 36415; 51701; 71010; 71250; 74176; 80048; 80053; 80076; 80202; 81003; 82308; 82553; 82947; 83605; 83690; 83735; 84484; 85025; 85027; 87040; 87077; 87086; 87186; 94640; 94760; 96374; 96375; 99285; J2270; J2405; J2543; J3260; J3370